=== PATIENT | female | born 1985 | race African-American/Black ===

== ENCOUNTER 2016-11-26 16:36 | Emergency (ER) | payer OTHER ==
[2016-11-26 17:43] LABS: MEAN CORPUSCULAR HEMOGLOBIN 30.9 pg (27.0-33.0); MEAN CORPUSCULAR HGB CONC 34.1 g/dl (32.0-36.5); MEAN CORPUSCULAR VOLUME 90.6 fl (80.0-96.0); RED CELL DISTRIBUTION WIDTH 13.1 % (11.5-14.5); WHITE BLOOD COUNT 7.2 K/mm3 (4.0-10.0)
--- NOTE | 2016-11-26 18:04 | REP ---
Clinical: with vaginal bleeding. Technique: Transabdominal pelvic ultrasound with color Doppler evaluation of the maternal ovaries and fetus. Findings: Anteverted uterus measures 9.3 x 5.4 x 7.2 cm and a single live early intrauterine is identified. Gestational sac with yolk sac and pole noted. CRL of 4 mm corresponds to 6 weeks 1 day gestational age with estimated date of delivery 07/21/2017. heart rate equals 116 beats per minute. A curvilinear subchorionic hemorrhage is identified measuring 16 x 14 mm and 3 cm in length. Impression: 1. Single live early intrauterine at 6 weeks 1 day gestational age. Complete anatomical assessment should be performed at 19-20 weeks. 2. Subchorionic hemorrhage as noted above. Signed by Mando Branch MD 11/26/2016 05:55 P
--- NOTE | 2016-11-26 18:57 | EDDOCDS ---
Physician Documentation [facility] Name: Clarence Oconnell Age: 31 yrs Sex: Female : 1985 Arrival Date: 11/26/2016 Time: 16:36 Bed TR7 Private MD: Other - Complete Info On Cds Disposition: 11/26/16 18:44 Discharged to Home/Self Care. Impression: Abnormal uterine and vaginal bleeding, unspecified - subchorionic hemmorrhage., Other specified related conditions, first trimester. - Condition is Stable. - Discharge Instructions: Threatened Miscarriage, Subchorionic Hematoma. - Medication Reconciliation form. - Follow up: Emergency Department; When: As needed; Reason: Worsening of conditions. Follow up: Your Computer System Validation Specialist; When: Call to arrange an appointment; Reason: Wound/Symptom Recheck, Recheck today's complaints, Worsening of conditions, Continuance of care. - Problem is new. - Symptoms are unchanged. Historical: - Allergies: no known allergies; - Home Meds: 1. estrodol twice a day 2. Oral daily 3. Prednisone Oral every other day 4. progesterone vaginal four times a day - PMHx: PCOS; - PSHx: none; - Social history: No barriers to communication noted, The patient speaks fluent Moldovan, Speaks appropriately for age, Smoking status: Patient states was never smoker of tobacco. - Family history: Not pertinent. - : The pt / caregiver states he / she is not on anticoagulants. Home medication list is obtained from the patient. - Exposure Risk Screening:: None identified. 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 2 in. (157.48 cm) (R); Pain 2/10; 18:48 BP 121 / 77; Pulse 82; Resp 18; Temp 98.3(O); Pulse Ox 100% on R/A; Pain 0/10; ar3 16:38 Body Mass Index 30.18 (74.84 kg, 157.48 cm) gr2 MDM: 17:13 Complete Blood Count Ordered. EDMS 17:13 Hcg, Serum Quantitative Ordered. EDMS 17:13 US 1st trimester Ordered. EDMS 17:13 Rh Only Ordered. EDMS Signatures: Dispatcher [employer] Maggy Echeverria RN RN jc4 Yaneth WhitesideRN RN eaRomel Devi PAKaterineC PA-C cc10 MTDD
--- NOTE | 2016-11-26 18:57 | EDDOCDS ---
Nurse's Notes [facility] Name: Clarence Oconnell Age: 31 yrs Sex: Female : 1985 Arrival Date: 11/26/2016 Time: 16:36 Bed TR7 Private MD: Other - Complete Info On Cds Diagnosis: Abnormal uterine and vaginal bleeding, unspecified-subchorionic hemmorrhage.;Other specified related conditions, first trimester Presentation: 11/26 16:44 Presenting complaint: Patient states: pt reports vaginal bleeding, moderate flow, onset ead 15 minutes prior to arrival. denies cramping. Pt states she is 6 weeks . LMP 10/10/16. Risk factors: The patient reports no loss of conciousness prior to arrival. This patient has not had a hysterectomy. This patient has not begun menopause. Adult Sepsis Screening: The patient does not have new or worsening altered mentation. Patient's respiratory rate is less than 22. Systolic blood pressure is greater than 100. Patient has a qSOFA score of 0- Negative Sepsis Screen. Suicide/Homicide risk assessment- the patient denies having any suicidal and/or homicidal ideations and does not present with any other emotional, behavioral or mental health complaints. Status: The patient is a dependent. Transition of care: patient was not received from another setting of care. 16:44 Acuity: MICHELLE Level 3 ead 16:44 Method Of Arrival: Walkin/Carried/Asstd ead Triage Assessment: 16:47 General: Appears in no apparent distress, comfortable, Behavior is appropriate for age, ead cooperative. Pain: Denies pain. Respiratory: Airway is patent Respiratory effort is even, unlabored. : Reports vaginal bleeding that is moderate flow. Derm: No deficits noted. 16:48 Pt Declines HIV testing. 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 estrodol twice a day 2. Oral daily 3. Prednisone Oral every other day 4. progesterone vaginal four times a day - PMHx: PCOS; - PSHx: none; - Social history: No barriers to communication noted, The patient speaks fluent [place], Speaks appropriately for age, Smoking status: Patient states was never smoker of tobacco. - Family history: Not pertinent. - : The pt / caregiver states he / she is not on anticoagulants. Home medication list is obtained from the patient. - Exposure Risk Screening:: None identified. Screenin:59 Screening information is obtained from the patient. Fall risk: No risks identified. jc4 Assistance ADL's: requires no assistance with activities of daily living. Abuse/DV Screen: The patient / caregiver reports he/she is: not in a situation that causes fear, pain or injury. Nutritional screening: No deficits noted. Advance Directives: Currently, there is no health care proxy. There is no active DNR order. There is no living will. There is no Power of Medical Device Assembler. home support is adequate. Assessment: 18:53 General: Appears in no apparent distress, Behavior is cooperative, pleasant. jc4 Neurological: Level of Consciousness is awake, alert, Oriented to person, place, time. Respiratory: Respiratory effort is even, unlabored. Derm: Skin is pink, warm & dry. Vital Signs: 16:38 BP 134 / 70; Pulse 95; Resp 18 S; Temp 97.7(O); Pulse Ox 100% on R/A; Weight 74.84 kg gr2 (R); Height 5 ft. 2 in. (157.48 cm) (R); Pain 2/10; 18:48 BP 121 / 77; Pulse 82; Resp 18; Temp 98.3(O); Pulse Ox 100% on R/A; Pain 0/10; ar3 16:38 Body Mass Index 30.18 (74.84 kg, 157.48 cm) gr2 Vitals: 16:38 Log In Time: November 26, 2016 at 16:38. gr2 ED Course: 16:37 Patient visited by Mazin Mae. gr2 16:37 Patient moved to Waiting gr2 16:38 Other - Complete Info On Cds is Private Physician. gr2 16:40 Patient visited by Mazin Mae. gr2 16:40 Patient moved to Pre RCE gr2 16:45 Triage Initiated ead 16:58 Patient moved to Triage 1 jc4 16:59 Rom[facility] Sweeney [facility] cc[facility] 16:59 Ger Clifford DO is Attending Physician. cc10 16:59 Patient visited by Romel Sweeney PA-C. cc10 17:00 Patient visited by Romel Sweeney PA-C. cc10 17:28 Patient moved to TR1 rs3 17:29 Patient moved to Ultrasound hgl 17:45 Patient moved to TR1 hgl 18:18 US 1st trimester Returned. EDMS 18:23 Patient moved to PR1 / 25 jc4 18:44 Your Air Crew Supervisor is Referral Physician. cc10 18:48 Patient visited by Gracie Santana PCA. ar3 18:53 The patient / caregiver is instructed regarding the plan of care and ED course. jc4 18:55 Patient moved to TR7 ead 18:55 No IV's were initiated during this patient's visit. No procedures done that require [facility] assistance. Order Results: Lab Order: Complete Blood Count; SPEC'M 11/26/16 17:24 Test: WHITE BLOOD COUNT; Value: 7.2; Range: 4.0-10.0; Units: K/mm3; Status: F Test: RED BLOOD COUNT; Value: 3.95; Range: 4.00-5.40; Abnormal: Below low normal; Units: M/mm3; Status: F Test: HEMOGLOBIN; Value: 12.2; Range: 12.0-16.0; Units: g/dl; Status: F Test: HEMATOCRIT; Value: 35.8; Range: 36.0-47.0; Abnormal: Below low normal; Units: %; Status: F Test: MEAN CORPUSCULAR VOLUME; Value: 90.6; Range: 80.0-96.0; Units: fl; Status: F Test: MEAN CORPUSCULAR HEMOGLOBIN; Value: 30.9; Range: 27.0-33.0; Units: pg; Status: F Test: MEAN CORPUSCULAR HGB CONC; Value: 34.1; Range: 32.0-36.5; Units: g/dl; Status: F Test: RED CELL DISTRIBUTION WIDTH; Value: 13.1; Range: 11.5-14.5; Units: %; Status: F Test: PLATELET COUNT, AUTOMATED; Value: 283; Range: 150-450; Units: k/mm3; Status: F Lab Order: Hcg, Serum Quantitative; SPEC'M 11/26/16 17:24 Test: HCG, SERUM QUANTITATIVE; Value: 38114; Units: MIU/ML; Status: F Test Note: ; GESTATIONAL AGE APPROXIMATE HCG RANGE (MIU/ML) 0.2-1 WEEK 5-50 1-2 WEEKS 50-500 2-3 WEEKS 100-5,000 3-4 WEEKS 500-10,000 4-5 WEEKS 1,000-50,000 5-6 WEEKS 10,000-100,000 6-8 WEEKS 15,000-200,000 2-3 MONTHS 10,000-100,000 NON FEMALES LESS THAN 3.0 Patient samples may contain human heterophilic antibodies that could react with immunoassays to give falsely elevated or depressed results. This assay has been designed to minimize interference from heterophilic antibodies. Elevated hCG levels have also been associated with trophoblastic disease and nontrophoblastic neoplasms. The possibility of having these diseases should be considered before a diagnosis of is made. This test is not intended for use as a surrogate marker for aiding in the diagnosis or monitoring the treatment of cancer patients. Siemens nexTune methodology. Lab Order: Rh Only; SPEC'M 11/26/16 17:24 Test: RH; Value: POSITIVE; Status: F Radiology Order: US 1st trimester Test: US 1st trimester REASON FOR EXAMINATION: Bleeding; Clinical: with vaginal bleeding.; ; Technique: Transabdominal pelvic ultrasound with color Doppler evaluation of the; maternal ovaries and fetus.; ; Findings:; Anteverted uterus measures 9.3 x 5.4 x 7.2 cm and a single live early; intrauterine is identified. Gestational sac with yolk sac and ; pole noted. CRL of 4 mm corresponds to 6 weeks 1 day gestational age with; estimated date of delivery 07/21/2017. heart rate equals 116 beats per; minute. A curvilinear subchorionic hemorrhage is identified measuring 16 x 14 mm; and 3 cm in length.; ; Impression:; 1. Single live early intrauterine at 6 weeks 1 day gestational age.; Complete anatomical assessment should be performed at 19-20 weeks.; 2. Subchorionic hemorrhage as noted above.; ; ; Signed by; Mando Branch MD 11/26/2016 05:55 P; Outcome: 18:44 Discharge ordered by Provider. cc10 18:55 Discharge Assessment: Patient awake, alert and oriented x 3. No cognitive and/or jc4 functional deficits noted. Patient verbalized understanding of disposition instructions. patient administered narcotics - no. The following High Risk Discharge criteria are identified: None. Discharged to home ambulatory, with significant other. Condition: stable. Discharge instructions given to patient, Instructed on discharge instructions, follow up and referral plans. Demonstrated understanding of instructions, Pt was receptive of discharge instructions/ teaching. Ultrasound Study completed. Property :Personal belongings accompany Pt. 18:55 Patient left the ED. jc4 Signatures: Dispatcher MedHost EDMS Renata Dahl,RN RN rs3 Gracie Santana, TRUCK SALES REPRESENTATIVE TRUCK SALES REPRESENTATIVE ar3 Maggy Solitario RN RN jc4 Manuel Hughes Gainslee gr2 Yaneth WhitesideRN RN eaRomel Devi, VICTOR MANUEL PA-Ankit cc10 Corrections: (The following items were deleted from the chart) 16:59 16:47 LMP 10/10/2016 elham jc4 MTDD
--- NOTE | 2016-11-28 19:57 | EDDOCDS ---
Nurse's Notes [facility] Name: Clarence Oconnell Age: 31 yrs Sex: Female : 1985 Arrival Date: 11/26/2016 Time: 16:36 Bed TR7 Private MD: Other - Complete Info On Cds Diagnosis: Abnormal uterine and vaginal bleeding, unspecified-subchorionic hemmorrhage.;Other specified related conditions, first trimester Presentation: 11/26 16:44 Presenting complaint: Patient states: pt reports vaginal bleeding, moderate flow, onset ead 15 minutes prior to arrival. denies cramping. Pt states she is 6 weeks . LMP 10/10/16. Risk factors: The patient reports no loss of conciousness prior to arrival. This patient has not had a hysterectomy. This patient has not begun menopause. Adult Sepsis Screening: The patient does not have new or worsening altered mentation. Patient's respiratory rate is less than 22. Systolic blood pressure is greater than 100. Patient has a qSOFA score of 0- Negative Sepsis Screen. Suicide/Homicide risk assessment- the patient denies having any suicidal and/or homicidal ideations and does not present with any other emotional, behavioral or mental health complaints. Status: The patient is a dependent. Transition of care: patient was not received from another setting of care. 16:44 Acuity: MICHELLE Level 3 ead 16:44 Method Of Arrival: Walkin/Carried/Asstd ead Triage Assessment: 16:47 General: Appears in no apparent distress, comfortable, Behavior is appropriate for age, ead cooperative. Pain: Denies pain. Respiratory: Airway is patent Respiratory effort is even, unlabored. : Reports vaginal bleeding that is moderate flow. Derm: No deficits noted. 16:48 Pt Declines HIV testing. 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 estrodol twice a day 2. Oral daily 3. Prednisone Oral every other day 4. progesterone vaginal four times a day - PMHx: PCOS; - PSHx: none; - Social history: No barriers to communication noted, The patient speaks fluent Cymraes, Speaks appropriately for age, Smoking status: Patient states was never smoker of tobacco. - Family history: Not pertinent. - : The pt / caregiver states he / she is not on anticoagulants. Home medication list is obtained from the patient. - Exposure Risk Screening:: None identified. Screenin:59 Screening information is obtained from the patient. Fall risk: No risks identified. jc4 Assistance ADL's: requires no assistance with activities of daily living. Abuse/DV Screen: The patient / caregiver reports he/she is: not in a situation that causes fear, pain or injury. Nutritional screening: No deficits noted. Advance Directives: Currently, there is no health care proxy. There is no active DNR order. There is no living will. There is no Power of Aerial Hurricane Hunter. home support is adequate. Assessment: 18:53 General: Appears in no apparent distress, Behavior is cooperative, pleasant. jc4 Neurological: Level of Consciousness is awake, alert, Oriented to person, place, time. Respiratory: Respiratory effort is even, unlabored. Derm: Skin is pink, warm & dry. Vital Signs: 16:38 BP 134 / 70; Pulse 95; Resp 18 S; Temp 97.7(O); Pulse Ox 100% on R/A; Weight 74.84 kg gr2 (R); Height 5 ft. 2 in. (157.48 cm) (R); Pain 2/10; 18:48 BP 121 / 77; Pulse 82; Resp 18; Temp 98.3(O); Pulse Ox 100% on R/A; Pain 0/10; ar3 16:38 Body Mass Index 30.18 (74.84 kg, 157.48 cm) gr2 Vitals: 16:38 Log In Time: November 26, 2016 at 16:38. gr2 ED Course: 16:37 Patient visited by Mazin Mae. gr2 16:37 Patient moved to Waiting gr2 16:38 Other - Complete Info On Cds is Private Physician. gr2 16:40 Patient visited by Mazin Mae. gr2 16:40 Patient moved to Pre RCE gr2 16:45 Triage Initiated ead 16:58 Patient moved to Triage 1 jc4 16:59 Romel Sweeney PA-C [facility] cc10 16:59 Ger Clifford DO is Attending Physician. cc10 16:59 Patient visited by Romel Sweeney PA-C. cc10 17:00 Patient visited by Romel Sweeney PA-C. cc10 17:28 Patient moved to TR1 rs3 17:29 Patient moved to Ultrasound hgl 17:45 Patient moved to TR1 hgl 18:18 US 1st trimester Returned. EDMS 18:23 Patient moved to PR1 / 25 jc4 18:44 Your Cloth Hand is Referral Physician. cc10 18:48 Patient visited by Gracie Santana PCA. ar3 18:53 The patient / caregiver is instructed regarding the plan of care and ED course. jc4 18:55 Patient moved to TR7 ead 18:55 No IV's were initiated during this patient's visit. No procedures done that require [facility] assistance. 11/27 01:39 T-Sheet-- Draft Copy was scanned into [employer] and attached to record. hs2 Order Results: Lab Order: Complete Blood Count; SPEC'M 11/26/16 17:24 Test: WHITE BLOOD COUNT; Value: 7.2; Range: 4.0-10.0; Units: K/mm3; Status: F Test: RED BLOOD COUNT; Value: 3.95; Range: 4.00-5.40; Abnormal: Below low normal; Units: M/mm3; Status: F Test: HEMOGLOBIN; Value: 12.2; Range: 12.0-16.0; Units: g/dl; Status: F Test: HEMATOCRIT; Value: 35.8; Range: 36.0-47.0; Abnormal: Below low normal; Units: %; Status: F Test: MEAN CORPUSCULAR VOLUME; Value: 90.6; Range: 80.0-96.0; Units: fl; Status: F Test: MEAN CORPUSCULAR HEMOGLOBIN; Value: 30.9; Range: 27.0-33.0; Units: pg; Status: F Test: MEAN CORPUSCULAR HGB CONC; Value: 34.1; Range: 32.0-36.5; Units: g/dl; Status: F Test: RED CELL DISTRIBUTION WIDTH; Value: 13.1; Range: 11.5-14.5; Units: %; Status: F Test: PLATELET COUNT, AUTOMATED; Value: 283; Range: 150-450; Units: k/mm3; Status: F Lab Order: Hcg, Serum Quantitative; SPEC'M 11/26/16 17:24 Test: HCG, SERUM QUANTITATIVE; Value: [id number]; Units: MIU/ML; Status: F Test Note: ; GESTATIONAL AGE APPROXIMATE HCG RANGE (MIU/ML) 0.2-1 WEEK 5-50 1-2 WEEKS 50-500 2-3 WEEKS 100-5,000 3-4 WEEKS 500-10,000 4-5 WEEKS 1,000-50,000 5-6 WEEKS 10,000-100,000 6-8 WEEKS 15,000-200,000 2-3 MONTHS 10,000-100,000 NON FEMALES LESS THAN 3.0 Patient samples may contain human heterophilic antibodies that could react with immunoassays to give falsely elevated or depressed results. This assay has been designed to minimize interference from heterophilic antibodies. Elevated hCG levels have also been associated with trophoblastic disease and nontrophoblastic neoplasms. The possibility of having these diseases should be considered before a diagnosis of is made. This test is not intended for use as a surrogate marker for aiding in the diagnosis or monitoring the treatment of cancer patients. Siemens CS Disco methodology. Lab Order: Rh Only; SPEC'M 11/26/16 17:24 Test: RH; Value: POSITIVE; Status: F Radiology Order: US 1st trimester Test: US 1st trimester REASON FOR EXAMINATION: Bleeding; Clinical: with vaginal bleeding.; ; Technique: Transabdominal pelvic ultrasound with color Doppler evaluation of the; maternal ovaries and fetus.; ; Findings:; Anteverted uterus measures 9.3 x 5.4 x 7.2 cm and a single live early; intrauterine is identified. Gestational sac with yolk sac and ; pole noted. CRL of 4 mm corresponds to 6 weeks 1 day gestational age with; estimated date of delivery 07/21/2017. heart rate equals 116 beats per; minute. A curvilinear subchorionic hemorrhage is identified measuring 16 x 14 mm; and 3 cm in length.; ; Impression:; 1. Single live early intrauterine at 6 weeks 1 day gestational age.; Complete anatomical assessment should be performed at 19-20 weeks.; 2. Subchorionic hemorrhage as noted above.; ; ; Signed by; Mando Branch MD 11/26/2016 05:55 P; Outcome: 11/26 18:44 Discharge ordered by Provider. cc10 18:55 Discharge Assessment: Patient awake, alert and oriented x 3. No cognitive and/or jc4 functional deficits noted. Patient verbalized understanding of disposition instructions. patient administered narcotics - no. The following High Risk Discharge criteria are identified: None. Discharged to home ambulatory, with significant other. Condition: stable. Discharge instructions given to patient, Instructed on discharge instructions, follow up and referral plans. Demonstrated understanding of instructions, Pt was receptive of discharge instructions/ teaching. Ultrasound Study completed. Property :Personal belongings accompany Pt. 18:55 Patient left the ED. jc4 Signatures: Dispatcher MedHost EDMS Renata Dahl,RN RN rs3 Gracie Santana, INFRASTRUCTURE DIRECTOR INFRASTRUCTURE DIRECTOR ar3 Maggy Solitario RN RN jc4 Manuel Hughes Gainslee gr2 Yaneth WhitesideRN RN ead Romel Sweeney, PA-C PA-C cc10 Penelope Terrazas, Reg Reg hs2 Corrections: (The following items were deleted from the chart) 16:59 16:47 LMP 10/10/2016 elham jc4 Chart Complete MTDD
--- NOTE | 2016-11-28 19:57 | EDDOCDS ---
Physician Documentation [facility] Name: Clarence Oconnell Age: 31 yrs Sex: Female : 1985 Arrival Date: 11/26/2016 Time: 16:36 Bed TR7 Private MD: Other - Complete Info On Cds Disposition: 11/26/16 18:44 Discharged to Home/Self Care. Impression: Abnormal uterine and vaginal bleeding, unspecified - subchorionic hemmorrhage., Other specified related conditions, first trimester. - Condition is Stable. - Discharge Instructions: Threatened Miscarriage, Subchorionic Hematoma. - Medication Reconciliation form. - Follow up: Emergency Department; When: As needed; Reason: Worsening of conditions. 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 - Problem is new. - Symptoms are unchanged. Historical: - Allergies: no known allergies; - Home Meds: 1. estrodol twice a day 2. Oral daily 3. Prednisone Oral every other day 4. progesterone vaginal four times a day - PMHx: PCOS; - PSHx: none; - Social history: No barriers to communication noted, The patient speaks fluent Panamanian, Speaks appropriately for age, Smoking status: Patient states was never smoker of tobacco. - Family history: Not pertinent. - : The pt / caregiver states he / she is not on anticoagulants. Home medication list is obtained from the patient. - Exposure Risk Screening:: None identified. 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 2 in. (157.48 cm) (R); Pain 2/10; 18:48 BP 121 / 77; Pulse 82; Resp 18; Temp 98.3(O); Pulse Ox 100% on R/A; Pain 0/10; ar3 16:38 Body Mass Index 30.18 (74.84 kg, 157.48 cm) gr2 MDM: 17:13 Complete Blood Count Ordered. EDMS 17:13 Hcg, Serum Quantitative Ordered. EDMS 17:13 US 1st trimester Ordered. EDMS 17:13 Rh Only Ordered. EDMS 19:23 Financial registration complete. larissa 11/27 01:39 T-Sheet-- Draft Copy was scanned into [employer] and attached to record. hs2 Signatures: Dispatcher [employer] EDNikky Robertson Jennifer RN RN jc4 Yaneth WhitesideRN RN ead Romel Sweeney, PA-C PA-C cc10 Penelope Terrazas, Reg Reg hs2 The chart was reviewed and I authenticate all verbal orders and agree with the evaluation and treatment provided.Attachments: 01:39 T-Sheet-- Draft Copy hs2 Chart Complete MTDD
--- NOTE | 2016-11-28 19:57 | EDDOCDS ---
Physician Documentation [facility] Name: Clarence Oconnell Age: 31 yrs Sex: Female : 1985 Arrival Date: 11/26/2016 Time: 16:36 Bed TR7 Private MD: Other - Complete Info On Cds Disposition: 11/26/16 18:44 Discharged to Home/Self Care. Impression: Abnormal uterine and vaginal bleeding, unspecified - subchorionic hemmorrhage., Other specified related conditions, first trimester. - Condition is Stable. - Discharge Instructions: Threatened Miscarriage, Subchorionic Hematoma. - Medication Reconciliation form. - Follow up: Emergency Department; When: As needed; Reason: Worsening of conditions. Follow up: Your Fish Bait Processing Supervisor; When: Call to arrange an appointment; Reason: Wound/Symptom Recheck, Recheck today's complaints, Worsening of conditions, Continuance of care. - Problem is new. - Symptoms are unchanged. Historical: - Allergies: no known allergies; - Home Meds: 1. estrodol twice a day 2. Oral daily 3. Prednisone Oral every other day 4. progesterone vaginal four times a day - PMHx: PCOS; - PSHx: none; - Social history: No barriers to communication noted, The patient speaks fluent Iraqi, Speaks appropriately for age, Smoking status: Patient states was never smoker of tobacco. - Family history: Not pertinent. - : The pt / caregiver states he / she is not on anticoagulants. Home medication list is obtained from the patient. - Exposure Risk Screening:: None identified. SALES PROMOTION MANAGER: 11/26 16:47 1, LMP 10/10/2016, Verified, EDC 07/17/2017, Gestational age from LMP: jc4 6 weeks 5 days Vital Signs: 16:38 BP 134 / 70; Pulse 95; Resp 18 S; Temp 97.7(O); Pulse Ox 100% on R/A; Weight 74.84 kg / gr2 164.99 lbs (R); Height 5 ft. 2 in. (157.48 cm) (R); Pain 2/10; 18:48 BP 121 / 77; Pulse 82; Resp 18; Temp 98.3(O); Pulse Ox 100% on R/A; Pain 0/10; ar3 16:38 Body Mass Index 30.18 (74.84 kg, 157.48 cm) gr2 MDM: 17:13 Complete Blood Count Ordered. EDMS 17:13 Hcg, Serum Quantitative Ordered. EDMS 17:13 US 1st trimester Ordered. EDMS 17:13 Rh Only Ordered. EDMS 19:23 Financial registration complete. larissa 11/27 01:39 T-Sheet-- Draft Copy was scanned into [employer] and attached to record. hs2 Signatures: Dispatcher [employer] EDNikky Robertson Jennifer RN RN [id number] Yaneth WhitesideRN RN ead Romel Sweeney, PA-C PA-C cc10 Penelope Terrazas, Reg Reg hs2 The chart was reviewed and I authenticate all verbal orders and agree with the evaluation and treatment provided.Attachments: 01:39 T-Sheet-- Draft Copy hs2 Chart Complete MTDD
== END 2016-11-26 18:55 | disposition home or self-care (01) ==
LOC: M ED 16:36
DX: O20.0 Threatened abortion (principal); O36.8910 Maternal care for other specified fetal problems, first trimester, not applicable or unspecified; O99.281 Endocrine, nutritional and metabolic diseases complicating pregnancy, first trimester; E28.2 Polycystic ovarian syndrome; Z79.899 Other long term (current) drug therapy; Z3A.01 Less than 8 weeks gestation of pregnancy

== ENCOUNTER 2016-12-19 20:21 | Emergency (ER) | payer OTHER ==
--- NOTE | 2016-12-19 22:50 | REPUSA ---
CLINICAL HISTORY: Assess . TECHNIQUE: Transabdominal and endovaginal ultrasound of the pelvis was performed with transabdominal technique using grayscale and color spectral Doppler. FINDINGS: Single intrauterine gestation identified correlating 10 weeks, 3 days based on CRL measurement of 3.5 mm, and expected date of delivery 07/14/2017. heart rate detected at 171 BPM. Small subchorioni c hemorrhage located in the lateral portion of the uterus. No gross abnormality is identified although complete anatomical survey is not possible due to g estational age. Maternal adnexal and cul-de-sac regions demonstrate no significant abnormalities Both ovaries are identified without adnexal mass or pelvic fluid collection. IMPRESSION: Single intrauterine gestation identified correlating 10 weeks, 3 days based on CRL measurement of 3.5 mm, and expected date of delivery 07/14/2017. Small subchorionic hemorrhage located in the lateral po rtion of the uterus noted and close clinical follow-up with pelvic ultrasound is recommended to ensur e resolution or stability.
--- NOTE | 2016-12-19 23:35 | EDDOCDS ---
Nurse's Notes [facility] Name: Clarence Oconnell Age: 31 yrs Sex: Female : 1985 Arrival Date: 12/19/2016 Time: 20:21 Bed 30 Private MD: Other - Complete Info On Cds Diagnosis: Threatened -single intrauterine with small stable subchorionic hematoma Presentation: 12/19 20:29 Presenting complaint: Patient states: Diagnosed with subchorionic hematoma 4 weeks ago. jo3 started bleeding again tonight and Ft drum triage nurse advised for pt to come to ED. Risk factors: The patient reports no loss of conciousness prior to arrival. This patient has not had a hysterectomy. This patient has not begun menopause. Adult Sepsis Screening: The patient does not have new or worsening altered mentation. Patient's respiratory rate is less than 22. Systolic blood pressure is greater than 100. Patient has a qSOFA score of 0- Negative Sepsis Screen. Suicide/Homicide risk assessment- the patient denies having any suicidal and/or homicidal ideations and does not present with any other emotional, behavioral or mental health complaints. Status: The patient is a dependent. Transition of care: patient was not received from another setting of care. 20:29 Acuity: MICHELLE Level 3 jo3 20:29 Method Of Arrival: Walkin/Carried/Asstd jo3 Triage Assessment: 20:32 General: Appears in no apparent distress, comfortable, Behavior is appropriate for age, jo3 cooperative. Pain: Denies pain. HIV screening NA for this visit Offered previously. Neurological: Level of Consciousness is awake, alert, Oriented to person, place, time. Respiratory: Airway is patent Respiratory effort is even, unlabored. : Reports vaginal bleeding that is bright red with clots. 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 Oral daily 2. progesterone vaginal four times a day 3. Vitamin B-6 Unknown oral as needed for nausea - PMHx: PCOS; - PSHx: none; - Social history: Smoking status: Patient states was never smoker of tobacco. No barriers to communication noted, The patient speaks fluent Panamanian, Speaks appropriately for age. - Family history: Not pertinent. - : The pt / caregiver states he / she is not on anticoagulants. Home medication list is obtained from the patient. - Exposure Risk Screening:: None identified. Screenin:11 Screening information is obtained from the patient. Fall risk: No risks identified. jo3 Assistance ADL's: requires no assistance with activities of daily living. Abuse/DV Screen: The patient / caregiver reports he/she is: not in a situation that causes fear, pain or injury. Nutritional screening: No deficits noted. Advance Directives: There is no active DNR order. home support is adequate. Assessment: 22:00 General: Appears in no apparent distress, comfortable, Behavior is appropriate for age, jo3 cooperative, pleasant. Neurological: Level of Consciousness is awake, alert, Oriented to person, place, time. Respiratory: Airway is patent Respiratory effort is even, unlabored. Derm: No deficits noted. Skin is intact, Skin is dry, Skin is normal, Skin temperature is warm. 23:32 General: Appears in no apparent distress, comfortable, Behavior is appropriate for age, jo3 cooperative, pleasant. Neurological: No deficits noted. Respiratory: Airway is patent Respiratory effort is even, unlabored. Derm: Skin is pink, warm & dry. Vital Signs: 20:23 BP 131 / 77; Pulse 94; Resp 18 S; Temp 98.6(O); Pulse Ox 100% on R/A; Weight 74.39 kg gr2 (R); Height 5 ft. 2 in. (157.48 cm) (R); Pain 2/10; 23:32 BP 123 / 77; Pulse 84; Resp 16; Temp 98.2(O); Pulse Ox 99% on R/A; jo3 20:23 Body Mass Index 30.00 (74.39 kg, 157.48 cm) gr2 Vitals: 20:23 Log In Time: December 19, 2016 at 20:23. gr2 ED Course: 20:22 Patient visited by Mazin Mae. gr2 20:22 Other - Complete Info On Cds is Private Physician. gr2 20:22 Patient moved to Waiting gr2 20:24 Patient visited by Mazin Mae. gr2 20:24 Patient moved to Pre RCE gr2 20:31 Triage Initiated jo3 20:32 Patient visited by Maggy Trujillo RN. jo3 21:37 Patient moved to Triage 1 jo3 22:06 Alberto S[facility]-C is [facility]. ar2 22:06 Lam Zhao DO is Attending Physician. ar2 22:08 Patient visited by Alberto Sánchez PA-C. ar2 22:16 Patient moved to 30 lf1 23:12 Patient visited by Maggy Trujillo RN. jo3 23:15 Kimmy Mcgregor OB is Referral Physician. ar2 23:32 The patient / caregiver is instructed regarding the plan of care and ED course. jo3 23:32 No IV's were initiated during this patient's visit. No procedures done that require jo3 assistance. Order Results: There are currently no results for this order. Outcome: 23:16 Discharge ordered by Provider. ar2 23:32 Discharge Assessment: Patient awake, alert and oriented x 3. No cognitive and/or jo3 functional deficits noted. Patient verbalized understanding of disposition instructions. patient administered narcotics - no. The following High Risk Discharge criteria are identified: None. Discharged to home ambulatory. Condition: stable Condition: improved. Discharge instructions given to patient, Instructed on discharge instructions, follow up and referral plans. Demonstrated understanding of instructions, Pt was receptive of discharge instructions/ teaching. Ultrasound Study completed. Property sent home with patient. 23:34 Patient left the ED. jo3 Signatures: Maggy Trujillo,RN RN oralia3 Claudia Blake RN RN 1 Alberto Sánchez PA-C PA-C ar2 Mazin Mae gr2 SEPIDEH
--- NOTE | 2016-12-19 23:35 | EDDOCDS ---
Physician Documentation [facility] Name: Clarence Oconnell Age: 31 yrs Sex: Female : 1985 Arrival Date: 12/19/2016 Time: 20:21 Bed 30 Private MD: Other - Complete Info On Cds Disposition: 12/19/16 23:16 Discharged to Home/Self Care. Impression: Threatened - single intrauterine with small stable subchorionic hematoma. - Condition is Stable. - Discharge Instructions: First Trimester of , Subchorionic Hematoma, Pelvic Rest, Second Trimester of , [id number]. - Medication Reconciliation, Local Pharmacy Hours form. - Follow up: Kimmy Mcgregor, OB; When: As previously arranged; Reason: Recheck today's complaints, Continuance of care. Follow up: Emergency Department; When: As needed; Reason: Worsening of conditions, severe pain, severe bleeding. - Problem is new. - Symptoms are unchanged. - Notes: call your mechanical sound technician office tomorrow to give them update of recent bleeding and today's visit. follow their instructions. Historical: - Allergies: No known drug Allergies; - Home Meds: 1. Oral daily 2. progesterone vaginal four times a day 3. Vitamin B-6 Unknown oral as needed for nausea - PMHx: PCOS; - PSHx: none; - Social history: Smoking status: Patient states was never smoker of tobacco. No barriers to communication noted, The patient speaks fluent Liberian, Speaks appropriately for age. - Family history: Not pertinent. - : The pt / caregiver states he / she is not on anticoagulants. Home medication list is obtained from the patient. - Exposure Risk Screening:: None identified. SPECIALTY COOK: 12/19 20:32 LMP 10/10/2016 jo3 Vital Signs: 20:23 BP 131 / 77; Pulse 94; Resp 18 S; Temp 98.6(O); Pulse Ox 100% on R/A; Weight 74.39 kg / gr2 164 lbs (R); Height 5 ft. 2 in. (157.48 cm) (R); Pain 2/10; 23:32 BP 123 / 77; Pulse 84; Resp 16; Temp 98.2(O); Pulse Ox 99% on R/A; jo3 20:23 Body Mass Index 30.00 (74.39 kg, 157.48 cm) gr2 MDM: 22:16 Undress patient appropriately for examination ordered. ar2 22:18 US 1st trimester Ordered. EDMS 22:40 DUPLEX SCAN LIMITED (DOPPLER) Ordered. EDMS 23:33 Financial registration complete. zo Signatures: Dispatcher [employer] EDMS Maggy Trujillo RN RN jo3 Nikky Torres Aaron, PA-C PA-C ar2 MTDD
--- NOTE | 2016-12-22 00:35 | EDDOCDS ---
Physician Documentation [facility] Name: Clarence Oconnell Age: 31 yrs Sex: Female : 1985 Arrival Date: 12/19/2016 Time: 20:21 Bed 30 Private MD: Other - Complete Info On Cds Disposition: 12/19/16 23:16 Discharged to Home/Self Care. Impression: Threatened - single intrauterine with small stable subchorionic hematoma. - Condition is Stable. - Discharge Instructions: First Trimester of , Subchorionic Hematoma, Pelvic Rest, Second Trimester of , [id number]. - Medication Reconciliation, Local Pharmacy Hours form. - Follow up: Kimmy Mcgregor, OB; When: As previously arranged; Reason: Recheck today's complaints, Continuance of care. Follow up: Emergency Department; When: As needed; Reason: Worsening of conditions, severe pain, severe bleeding. - Problem is new. - Symptoms are unchanged. - Notes: call your senior network security architect office tomorrow to give them update of recent bleeding and today's visit. follow their instructions. Historical: - Allergies: No known drug Allergies; - Home Meds: 1. Oral daily 2. progesterone vaginal four times a day 3. Vitamin B-6 Unknown oral as needed for nausea - PMHx: PCOS; - PSHx: none; - Social history: Smoking status: Patient states was never smoker of tobacco. No barriers to communication noted, The patient speaks fluent Slovenian, Speaks appropriately for age. - Family history: Not pertinent. - : The pt / caregiver states he / she is not on anticoagulants. Home medication list is obtained from the patient. - Exposure Risk Screening:: None identified. 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 2 in. (157.48 cm) (R); Pain 2/10; 23:32 BP 123 / 77; Pulse 84; Resp 16; Temp 98.2(O); Pulse Ox 99% on R/A; jo3 20:23 Body Mass Index 30.00 (74.39 kg, 157.48 cm) gr2 MDM: 22:16 Undress patient appropriately for examination ordered. ar2 22:18 US 1st trimester Ordered. EDMS 22:40 DUPLEX SCAN LIMITED (DOPPLER) Ordered. EDMS 23:33 Financial registration complete. zo :49 [facility] Payment Agreement was scanned into [employer] and attached to record. zo 12/20 12:45 T-Sheet-- Draft Copy was scanned into [employer] and attached to record. gb 12:45 Radiology Report was scanned into [employer] and attached to record. gb Signatures: Dispatcher [employer] EDMS Caro Shaw, Reg Reg gb Maggy Trujillo,RN RN jo3 Nikky Torres Aaron, PA-C PANeal ar2 The chart was reviewed and I authenticate all verbal orders and agree with the evaluation and treatment provided.Attachments: 12/19 23:49 [facility] Payment Agreement zo 12/20 12:45 T-Sheet-- Draft Copy gb Chart Complete MTDD
--- NOTE | 2016-12-22 00:35 | EDDOCDS ---
Physician Documentation [facility] Name: Clarence Oconnell Age: 31 yrs Sex: Female : 1985 Arrival Date: 12/19/2016 Time: 20:21 Bed 30 Private MD: Other - Complete Info On Cds Disposition: 12/19/16 23:16 Discharged to Home/Self Care. Impression: Threatened - single intrauterine with small stable subchorionic hematoma. - Condition is Stable. - Discharge Instructions: First Trimester of , Subchorionic Hematoma, Pelvic Rest, Second Trimester of , [id number]. - Medication Reconciliation, Local Pharmacy Hours form. - Follow up: Kimmy Mcgregor, OB; When: As previously arranged; Reason: Recheck today's complaints, Continuance of care. Follow up: Emergency Department; When: As needed; Reason: Worsening of conditions, severe pain, severe bleeding. - Problem is new. - Symptoms are unchanged. - Notes: call your timber sprinkler office tomorrow to give them update of recent bleeding and today's visit. follow their instructions. Historical: - Allergies: No known drug Allergies; - Home Meds: 1. Oral daily 2. progesterone vaginal four times a day 3. Vitamin B-6 Unknown oral as needed for nausea - PMHx: PCOS; - PSHx: none; - Social history: Smoking status: Patient states was never smoker of tobacco. No barriers to communication noted, The patient speaks fluent Bahamian, Speaks appropriately for age. - Family history: Not pertinent. - : The pt / caregiver states he / she is not on anticoagulants. Home medication list is obtained from the patient. - Exposure Risk Screening:: None identified. MANAGER PRACTICE: 12/19 20:32 LMP 10/10/2016 jo3 Vital Signs: 20:23 BP 131 / 77; Pulse 94; Resp 18 S; Temp 98.6(O); Pulse Ox 100% on R/A; Weight 74.39 kg / gr2 164 lbs (R); Height 5 ft. 2 in. (157.48 cm) (R); Pain 2/10; 23:32 BP 123 / 77; Pulse 84; Resp 16; Temp 98.2(O); Pulse Ox 99% on R/A; jo3 20:23 Body Mass Index 30.00 (74.39 kg, 157.48 cm) gr2 MDM: 22:16 Undress patient appropriately for examination ordered. ar2 22:18 US 1st trimester Ordered. EDMS 22:40 DUPLEX SCAN LIMITED (DOPPLER) Ordered. EDMS 23:33 Financial registration complete. zo :49 [facility] Payment Agreement was scanned into [employer] and attached to record. zo 12/20 12:45 T-Sheet-- Draft Copy was scanned into [employer] and attached to record. gb 12:45 Radiology Report was scanned into [employer] and attached to record. gb Signatures: Dispatcher [employer] EDMS Caro Shaw, Reg Reg gb Maggy Trujillo,RN RN jo3 Nikky Torres Aaron, PA-C PANeal ar2 The chart was reviewed and I authenticate all verbal orders and agree with the evaluation and treatment provided.Attachments: 12/19 23:49 [facility] Payment Agreement zo 12/20 12:45 T-Sheet-- Draft Copy gb Chart Complete MTDD
--- NOTE | 2016-12-22 00:35 | EDDOCDS ---
Nurse's Notes [facility] Name: Clarence Oconnell Age: 31 yrs Sex: Female : 1985 Arrival Date: 12/19/2016 Time: 20:21 Bed 30 Private MD: Other - Complete Info On Cds Diagnosis: Threatened -single intrauterine with small stable subchorionic hematoma Presentation: 12/19 20:29 Presenting complaint: Patient states: Diagnosed with subchorionic hematoma 4 weeks ago. jo3 started bleeding again tonight and Ft drum triage nurse advised for pt to come to ED. Risk factors: The patient reports no loss of conciousness prior to arrival. This patient has not had a hysterectomy. This patient has not begun menopause. Adult Sepsis Screening: The patient does not have new or worsening altered mentation. Patient's respiratory rate is less than 22. Systolic blood pressure is greater than 100. Patient has a qSOFA score of 0- Negative Sepsis Screen. Suicide/Homicide risk assessment- the patient denies having any suicidal and/or homicidal ideations and does not present with any other emotional, behavioral or mental health complaints. Status: The patient is a dependent. Transition of care: patient was not received from another setting of care. 20:29 Acuity: MICHELLE Level 3 jo3 20:29 Method Of Arrival: Walkin/Carried/Asstd jo3 Triage Assessment: 20:32 General: Appears in no apparent distress, comfortable, Behavior is appropriate for age, jo3 cooperative. Pain: Denies pain. HIV screening NA for this visit Offered previously. Neurological: Level of Consciousness is awake, alert, Oriented to person, place, time. Respiratory: Airway is patent Respiratory effort is even, unlabored. : Reports vaginal bleeding that is bright red with clots. 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 Oral daily 2. progesterone vaginal four times a day 3. Vitamin B-6 Unknown oral as needed for nausea - PMHx: PCOS; - PSHx: none; - Social history: Smoking status: Patient states was never smoker of tobacco. No barriers to communication noted, The patient speaks fluent [place] Citizen, Speaks appropriately for age. - Family history: Not pertinent. - : The pt / caregiver states he / she is not on anticoagulants. Home medication list is obtained from the patient. - Exposure Risk Screening:: None identified. Screenin:11 Screening information is obtained from the patient. Fall risk: No risks identified. jo3 Assistance ADL's: requires no assistance with activities of daily living. Abuse/DV Screen: The patient / caregiver reports he/she is: not in a situation that causes fear, pain or injury. Nutritional screening: No deficits noted. Advance Directives: There is no active DNR order. home support is adequate. Assessment: 22:00 General: Appears in no apparent distress, comfortable, Behavior is appropriate for age, jo3 cooperative, pleasant. Neurological: Level of Consciousness is awake, alert, Oriented to person, place, time. Respiratory: Airway is patent Respiratory effort is even, unlabored. Derm: No deficits noted. Skin is intact, Skin is dry, Skin is normal, Skin temperature is warm. 23:32 General: Appears in no apparent distress, comfortable, Behavior is appropriate for age, jo3 cooperative, pleasant. Neurological: No deficits noted. Respiratory: Airway is patent Respiratory effort is even, unlabored. Derm: Skin is pink, warm & dry. Vital Signs: 20:23 BP 131 / 77; Pulse 94; Resp 18 S; Temp 98.6(O); Pulse Ox 100% on R/A; Weight 74.39 kg gr2 (R); Height 5 ft. 2 in. (157.48 cm) (R); Pain 2/10; 23:32 BP 123 / 77; Pulse 84; Resp 16; Temp 98.2(O); Pulse Ox 99% on R/A; jo3 20:23 Body Mass Index 30.00 (74.39 kg, 157.48 cm) gr2 Vitals: 20:23 Log In Time: December 19, 2016 at 20:23. gr2 ED Course: 20:22 Patient visited by Mazin Mae. gr2 20:22 Other - Complete Info On Cds is Private Physician. gr2 20:22 Patient moved to Waiting gr2 20:24 Patient visited by Mazin Mae. gr2 20:24 Patient moved to Pre RCE gr2 20:31 Triage Initiated jo3 20:32 Patient visited by Maggy Trujillo RN. jo3 21:37 Patient moved to Triage 1 jo3 22:06 Alberto [facility]. ar2 22:06 Lam Zhao DO is Attending Physician. ar2 22:08 Patient visited by Alberto Sánchez PA-C. ar2 22:16 Patient moved to 30 lf1 23:12 Patient visited by Maggy Trujillo RN. jo3 23:15 [place], OB is Referral Physician. ar2 23:32 The patient / caregiver is instructed regarding the plan of care and ED course. jo3 23:32 No IV's were initiated during this patient's visit. No procedures done that require jo3 assistance. 23:47 US 1st trimester Returned. EDMS 23:49 [facility] Payment Agreement was scanned into [employer] and attached to record. zo 12/20 12:45 T-Sheet-- Draft Copy was scanned into [employer] and attached to record. gb 12:45 Radiology Report was scanned into [employer] and attached to record. gb Order Results: Radiology Order: US 1st trimester Test: US 1st trimester REASON FOR EXAMINATION: LMP 10/10/16;Vaginal Bleeding - ; ; CLINICAL HISTORY: Assess .; TECHNIQUE: Transabdominal and endovaginal ultrasound of the pelvis was performed with transabdominal; technique using grayscale and color spectral Doppler.; FINDINGS:; Single intrauterine gestation identified correlating 10 weeks, 3 days based on CRL measurement of 3.5; mm, and expected date of delivery 07/14/2017. heart rate detected at 171 BPM. Small subchorioni; c hemorrhage located in the lateral portion of the uterus.; No gross abnormality is identified although complete anatomical survey is not possible due to g; estational age.; Maternal adnexal and cul-de-sac regions demonstrate no significant abnormalities; Both ovaries are identified without adnexal mass or pelvic fluid collection.; IMPRESSION:; Single intrauterine gestation identified correlating 10 weeks, 3 days based on CRL measurement of 3.5; mm, and expected date of delivery 07/14/2017. Small subchorionic hemorrhage located in the lateral po; rtion of the uterus noted and close clinical follow-up with pelvic ultrasound is recommended to ensur; e resolution or stability.; ; Outcome: 12/19 23:16 Discharge ordered by Provider. ar2 23:32 Discharge Assessment: Patient awake, alert and oriented x 3. No cognitive and/or jo3 functional deficits noted. Patient verbalized understanding of disposition instructions. patient administered narcotics - no. The following High Risk Discharge criteria are identified: None. Discharged to home ambulatory. Condition: stable Condition: improved. Discharge instructions given to patient, Instructed on discharge instructions, follow up and referral plans. Demonstrated understanding of instructions, Pt was receptive of discharge instructions/ teaching. Ultrasound Study completed. Property sent home with patient. 23:34 Patient left the ED. jo3 Signatures: Dispatcher [employer] EDMS Caro Shaw, Reg Reg Maggy DoddRN RN jo3 Nikky Torres LisaRN RN lf1 Alberto Sánchez PA-C PA-C ar2 Mazin Mae gr2 Chart Complete MTDValentin
== END 2016-12-19 23:34 | disposition home or self-care (01) ==
LOC: M ED 20:21
DX: O20.8 Other hemorrhage in early pregnancy (principal); Z3A.10 10 weeks gestation of pregnancy; E28.2 Polycystic ovarian syndrome; Z79.899 Other long term (current) drug therapy

== ENCOUNTER 2016-12-24 19:59 | Emergency (ER) | payer OTHER ==
[2016-12-24] MEDS ORDERED: METOCLOPRAMIDE 10 MG TAB As Ordered ONE (20:33)
[2016-12-24 23:04] LABS: BASO % 0.3 % (0.0-1.0); EOS # 0.1 K/mm3 (0.0-0.50); EOS % 1.2 % (0.0-3.0); LARGE UNSTAINED CELL # 0.1 K/mm3 (0.0-0.4); LARGE UNSTAINED CELL % 1.6 % (0.0-4.0); LYMPH # 1.8 K/mm3 (1.5-6.5); MEAN CORPUSCULAR HEMOGLOBIN 30.4 pg (27.0-33.0); MEAN CORPUSCULAR HGB CONC 33.6 g/dl (32.0-36.5); MEAN CORPUSCULAR VOLUME 90.2 fl (80.0-96.0); MONO # 0.3 K/mm3 (0.0-0.8); MONO % 3.7 % (0.0-5.0); NEUTROPHILS # 4.7 K/mm3 (1.8-7.7); NEUTROPHILS % 67.1 % (36.0-66.0); PLATELET COUNT, AUTOMATED 295 k/mm3 (150-450); RED CELL DISTRIBUTION WIDTH 12.2 % (11.5-14.5)
[2016-12-24 23:24] LABS: ANION GAP 12 MEQ/L (8-16); BLOOD UREA NITROGEN 11 MG/DL (7-18); CALCIUM LEVEL 9.3 MG/DL (8.5-10.1); CARBON DIOXIDE LEVEL 25 MEQ/L (21-32); CHLORIDE LEVEL 101 MEQ/L (98-107); CREATININE FOR GFR 0.71 MG/DL (0.55-1.02); GLOMERULAR FILTRATION RATE > 60.0 (>60); GLUCOSE, FASTING 86 MG/DL (70-105); POTASSIUM SERUM 3.6 MEQ/L (3.5-5.1); SODIUM LEVEL 138 MEQ/L (136-145)
--- NOTE | 2016-12-24 23:40 | REPUSA ---
Clinical history: Pain. Comparison: 12/19/2016. Findings: Real-time transabdominal ultrasound images of the pelvis were obtained. There is a single l herbert intrauterine . The crown rump length measures 3.5 cm. heart rate measures 162 bpm. The gestational sac is otherwise unremarkable. A small subchorionic hemorrhage is again noted, measu ring approximate 3.2 x 1.1 cm. This is not significantly change since the prior study. The ovaries ar e grossly stable in appearance. There is no free fluid. Impression: 1. Single live intrauterine measuring 10 weeks 2 days, with estimated due date of 07/20/2017. This is consistent with the previous findings. 2. Stable small subchorionic hemorrhage.
[2016-12-25] MEDS ORDERED: NITROFURANTOIN (MACROBID) 100 MG CAP As Ordered ONE (00:23)
--- NOTE | 2016-12-25 00:31 | EDDOCDS ---
Nurse's Notes [facility] Name: Clarence Oconnell Age: 31 yrs Sex: Female : 1985 Arrival Date: 12/24/2016 Time: 19:59 Bed I5 / M5 Private MD: FABIO Urbina Diagnosis: Vomiting of , unspecified;Urinary tract infection, site not specified Presentation: 12/24 20:06 Presenting complaint: Patient states: Patient reports that started vomiting last b evening. Called Kimmy Mcgregor OB whom suggested to come to ER. Adult Sepsis Screening: The patient does not have new or worsening altered mentation. Patient's respiratory rate is less than 22. Systolic blood pressure is greater than 100. Patient has a qSOFA score of 0- Negative Sepsis Screen. Suicide/Homicide risk assessment- the patient denies having any suicidal and/or homicidal ideations and does not present with any other emotional, behavioral or mental health complaints. Status: The patient is a dependent. Transition of care: patient was not received from another setting of care. 20:06 Acuity: MICHELLE Level 3 b 20:06 Method Of Arrival: Walkin/Carried/Asstd jmb Triage Assessment: 20:08 General: Appears in no apparent distress, Behavior is appropriate for age, cooperative. jmb Pain: Denies pain. HIV screening NA for this visit Offered previously. Neurological: Level of Consciousness is awake, alert, obeys commands, Oriented to person, place, time, Speech is normal, Facial symmetry appears normal, Facial symmetry: tongue is midline. Respiratory: Airway is patent Respiratory effort is even, unlabored, Respiratory pattern is regular, symmetrical. Derm: Skin is normal. Musculoskeletal: Range of motion intact in all extremities. 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 Oral daily 2. progesterone vaginal four times a day 3. Vitamin B-6 Oral as needed for nausea - PMHx: PCOS; - PSHx: none; - Social history: Smoking status: Patient states was never smoker of tobacco. No barriers to communication noted, The patient speaks fluent Faroese, Speaks appropriately for age. - Family history: Not pertinent. - : The pt / caregiver states he / she is not on anticoagulants. Home medication list is obtained from the patient. - Exposure Risk Screening:: None identified. Screenin:54 Screening information is obtained from the patient. Fall risk: No risks identified. kc3 Assistance ADL's: requires no assistance with activities of daily living. Abuse/DV Screen: The patient / caregiver reports he/she is: not in a situation that causes fear, pain or injury. Nutritional screening: No deficits noted. Advance Directives: Currently, there is no health care proxy. home support is adequate. Assessment: 21:52 General: Appears in no apparent distress, comfortable, Behavior is appropriate for age, kc3 cooperative, 11 weeks . Pain: Location: epigastric area Pain currently is 4 out of 10 on a pain scale. Neurological: Level of Consciousness is awake, alert, obeys commands, Oriented to person, place, time. Respiratory: Airway is patent Respiratory effort is even, unlabored. GI: Abd is soft Abd is tender to palpation Reports nausea, vomiting. GI: Bowel sounds present X 4 quads. Derm: Skin is normal. 23:02 GI: Abdomen is non- distended Bowel sounds present X 4 quads. Denies nausea, vomiting. rs3 12/25 00:26 General: Patient instructed on discharge instructions. Patient asked if there were any b questions regarding discharge, patient stated no. IV discontinued per hospital policy. Patient signed discharge instructions. Patient discharged in stable condition. . Vital Signs: 12/24 20:01 BP 123 / 73; Pulse 99; Resp 18; Temp 97.3(T); Pulse Ox 99% on R/A; Weight 74.84 kg (R); dem1 Height 5 ft. 2 in. (157.48 cm) (R); Pain 4/10; 21:54 BP 131 / 75; Pulse 99; Resp 18; Pulse Ox 97% on R/A; Pain 4/10; kc3 12/25 00:24 BP 121 / 73; Pulse 104; Resp 18; Temp 98.9; Pulse Ox 98% ; Pain 0/10; ajs 12/24 20:01 Body Mass Index 30.18 (74.84 kg, 157.48 cm) [facility] Vitals: 12/24 20:01 Log In Time: December 24, 2016 at 19:55. [facility] ED Course: 20:00 Patient visited by Checo Soriano. dem1 20:00 Patient moved to Waiting dem1 20:01 Carlitos [facility] is Private Physician. dem1 20:02 Patient moved to Pre RCE dem1 20:07 Triage Initiated jmb 21:49 Patient moved to Triage 2 kc3 21:55 Patient visited by Deepti Roper RN. kc3 22:22 Brandyn Cuellar RPA-C is PHCP. ck7 22:22 Ger Clifford DO is Attending Physician. ck7 22:22 Patient visited by Brandyn Cuellar RPA-C. ck7 22:38 Patient moved to I5 / M5 jmb 22:53 Patient visited by Brandyn Cuellar RPA-C. ck7 23:02 Inserted saline lock: 20 gauge in left antecubital area and blood collected. Labs rs3 drawn. (by ED staff). 23:24 Patient visited by Brandyn Cuellar RPA-C. ck7 23:58 Patient visited by Brandyn Cuellar RPA-C. ck7 12/25 00:17 BONITA Pace is Referral Physician. ck7 00:24 Patient visited by Manisha Velez. ajs 00:24 US 1st trimester Returned. EDMS 00:26 The patient / caregiver is instructed regarding the plan of care and ED course. jmb 00:26 Discontinued lock intact, bleeding controlled, pressure dressing applied, No jmb redness/swelling at site. No procedures done that require assistance. Administered Medications: 12/24 20:35 Drug: Metoclopramide 10 mg [metoclopramide 10 mg tablet (1 tabs)] Route: PO; jmb 23:00 Drug: NS 0.9% 1000 ml [sodium chloride 0.9 % intravenous solution] Route: IV; Rate: rs3 bolus; Site: left antecubital; 12/25 00:25 Drug: Nitrofurantoin 100 mg [nitrofurantoin macrocrystal 50 mg capsule (2 caps)] Route: jmb PO; Order Results: Lab Order: CBC with Diff; SPEC'M 12/24/16 22:51 Test: WHITE BLOOD COUNT; Value: 7.0; Range: 4.0-10.0; Units: K/mm3; Status: F Test: RED BLOOD COUNT; Value: 3.99; Range: 4.00-5.40; Abnormal: Below low normal; Units: M/mm3; Status: F Test: HEMOGLOBIN; Value: 12.1; Range: 12.0-16.0; Units: g/dl; Status: F Test: HEMATOCRIT; Value: 36.0; Range: 36.0-47.0; Units: %; Status: F Test: MEAN CORPUSCULAR VOLUME; Value: 90.2; Range: 80.0-96.0; Units: fl; Status: F Test: MEAN CORPUSCULAR HEMOGLOBIN; Value: 30.4; Range: 27.0-33.0; Units: pg; Status: F Test: MEAN CORPUSCULAR HGB CONC; Value: 33.6; Range: 32.0-36.5; Units: g/dl; Status: F Test: RED CELL DISTRIBUTION WIDTH; Value: 12.2; Range: 11.5-14.5; Units: %; Status: F Test: PLATELET COUNT, AUTOMATED; Value: 295; Range: 150-450; Units: k/mm3; Status: F Test: NEUTROPHILS %; Value: 67.1; Range: 36.0-66.0; Abnormal: Above high normal; Units: %; Status: F Test: LYMPH %; Value: 26.0; Range: 24.0-44.0; Units: %; Status: F Test: MONO %; Value: 3.7; Range: 0.0-5.0; Units: %; Status: F Test: EOS %; Value: 1.2; Range: 0.0-3.0; Units: %; Status: F Test: BASO %; Value: 0.3; Range: 0.0-1.0; Units: %; Status: F Test: LARGE UNSTAINED CELL %; Value: 1.6; Range: 0.0-4.0; Units: %; Status: F Test: NEUTROPHILS #; Value: 4.7; Range: 1.8-7.7; Units: K/mm3; Status: F Test: LYMPH #; Value: 1.8; Range: 1.5-6.5; Units: K/mm3; Status: F Test: MONO #; Value: 0.3; Range: 0.0-0.8; Units: K/mm3; Status: F Test: EOS #; Value: 0.1; Range: 0.0-0.50; Units: K/mm3; Status: F Test: BASO #; Value: 0.0; Range: 0.0-0.2; Units: K/mm3; Status: F Test: LARGE UNSTAINED CELL #; Value: 0.1; Range: 0.0-0.4; Units: K/mm3; Status: F Lab Order: MED Profile; SPEC'12/24/16 22:51 Test: GLUCOSE, FASTING; Value: 86; Range: 70-105; Units: MG/DL; Status: F Test: BLOOD UREA NITROGEN; Value: 11; Range: 7-18; Units: MG/DL; Status: F Test: CREATININE FOR GFR; Value: 0.71; Range: 0.55-1.02; Units: MG/DL; Status: F Test: GLOMERULAR FILTRATION RATE; Value: > 60.0; Range: >60; Status: F Test: SODIUM LEVEL; Value: 138; Range: 136-145; Units: MEQ/L; Status: F Test: POTASSIUM SERUM; Value: 3.6; Range: 3.5-5.1; Units: MEQ/L; Status: F Test: CHLORIDE LEVEL; Value: 101; Range: 98-107; Units: MEQ/L; Status: F Test: CARBON DIOXIDE LEVEL; Value: 25; Range: 21-32; Units: MEQ/L; Status: F Test: ANION GAP; Value: 12; Range: 8-16; Units: MEQ/L; Status: F Test: CALCIUM LEVEL; Value: 9.3; Range: 8.5-10.1; Units: MG/DL; Status: F Test Note: ; Units are mL/min/1.73 m2 Chronic Kidney Disease Staging per NKF: Stage I & II GFR >=60 Normal to Mildly Decreased Stage III GFR 30-59 Moderately Decreased Stage IV GFR 15-29 Severely Decreased Stage V GFR <15 Very Little GFR Left ESRD GFR <15 on EQUIPMENT CLEANER Lab Order: UA; SPEC'12/24/16 22:39 Test: APPEARANCE, URINE; Value: CLOUDY; Range: CLEAR; Abnormal: Above high normal; Status: F Test: COLOR, URINE; Value: MARIBELL; Range: YELLOW; Status: F Test: PH,URINE; Value: 5.0; Range: 5.0-9.0; Units: UNITS; Status: F Test: SPECIFIC GRAVITY URINE AUTO; Value: 1.027; Range: 1.002-1.035; Status: F Test: PROTEIN, URINE AUTO; Value: 1+; Range: NEGATIVE; Abnormal: Above high normal; Units: mg/dL; Status: F Test: GLUCOSE, URINE (UA) AUTO; Value: NEGATIVE; Range: NEGATIVE; Units: mg/dL; Status: F Test: KETONE, URINE AUTO; Value: 2+; Range: NEGATIVE; Abnormal: Above high normal; Units: mg/dL; Status: F Test: UROBILINOGEN, URINE AUTO; Value: 0.2; Range: 0.0-2.0; Units: mg/dL; Status: F Test: BILIRUBIN, URINE AUTO; Value: NEGATIVE; Range: NEGATIVE; Status: F Test: NITRITE, URINE AUTO; Value: NEGATIVE; Range: NEGATIVE; Status: F Test: LEUKOCYTE ESTERASE, URINE AUTO; Value: NEGATIVE; Range: NEGATIVE; Status: F Test: BLOOD, URINE BLOOD; Value: 3+; Range: NEGATIVE; Abnormal: Above high normal; Status: F Test: WBC, URINE AUTO; Value: 29; Range: 0-3; Abnormal: Above high normal; Units: /HPF; Status: F Test: RBC, URINE AUTO; Value: 16; Range: 0-3; Abnormal: Above high normal; Units: /HPF; Status: F Test: BACTERIA, URINE AUTO; Value: 3+; Range: NEGATIVE; Abnormal: Above high normal; Status: F Test: SQUAMOUS EPITHELIAL CELL UR AU; Value: 11; Range: 0-6; Units: /HPF; Status: F Test: MUCUS, URINE; Value: LARGE; Range: NEGATIVE; Status: F Test: HYALINE CAST, URINE AUTO; Value: 0; Range: 0-1; Units: /LPF; Status: F Test: AMORPHOUS SEDIMENT; Value: SMALL; Range: NEGATIVE; Abnormal: Above high normal; Status: F Radiology Order: US 1st trimester Test: US 1st trimester REASON FOR EXAMINATION: FHT CHECK; ; Clinical history: Pain.; Comparison: 12/19/2016.; Findings: Real-time transabdominal ultrasound images of the pelvis were obtained. There is a single l; herbert intrauterine . The crown rump length measures 3.5 cm. heart rate measures 162 bpm.; The gestational sac is otherwise unremarkable. A small subchorionic hemorrhage is again noted, measu; ring approximate 3.2 x 1.1 cm. This is not significantly change since the prior study. The ovaries ar; e grossly stable in appearance. There is no free fluid.; Impression:; 1. Single live intrauterine measuring 10 weeks 2 days, with estimated due date of 07/20/2017.; This is consistent with the previous findings.; 2. Stable small subchorionic hemorrhage.; ; Outcome: 00:17 Discharge ordered by Provider. ck7 00:26 Discharge Assessment: Patient awake, alert and oriented x 3. No cognitive and/or jmb functional deficits noted. Patient verbalized understanding of disposition instructions. Patient awake and alert. obeys commands, Oriented to person, place and time. Patient verbalized understanding of disposition instructions. Patient has no functional deficits. patient administered narcotics - no. The following High Risk Discharge criteria are identified: None. Discharged to home ambulatory. Condition: stable Condition: improved. Discharge instructions given to patient, Instructed on discharge instructions, follow up and referral plans. medication usage, Demonstrated understanding of instructions, medications, Pt was receptive of discharge instructions/ teaching. Prescriptions given X 2. No special radiology studies were completed. Property sent home with patient. 00:30 Patient left the ED. lina Signatures: Dispatcher [employer] Renata Elizabeth,RN RN rs3 Manisha Velez Demeishia dem1 Kwaczala, Christopher, RPA-C RPA-Cck7 Mike Orellana RN RN jmb Crane, Kelsi,RN RN kc3 MTDD
--- NOTE | 2016-12-25 00:31 | EDDOCDS ---
Physician Documentation [facility] Name: Clarence Oconnell Age: 31 yrs Sex: Female : 1985 Arrival Date: 12/24/2016 Time: 19:59 Bed I5 / M5 Private MD: Carlitos [facility] [place]: 12/25/16 00:17 Discharged to Home/Self Care. Impression: Vomiting of , unspecified, Urinary tract infection, site not specified. - Condition is Stable. - Discharge Instructions: Hyperemesis Gravidarum, Urinary Tract Infection. - Prescriptions for ZOFRAN ODT 4 mg - dissolve 1 tablet by ORAL route 4 times per day As needed do not chew, do not swallow whole; 10 tablet. Macrobid 100 mg Oral Capsule - take 100 milligram by ORAL route every 12 hours for 10 days; 20 capsule. - Medication Reconciliation, Local Pharmacy Hours form. - Follow up: Kimmy Mcgregor OB; When: 1 - 2 days; Reason: Recheck today's complaints, Continuance of care. - Problem is new. - Symptoms have improved. - Notes: USE MEDICATIONS INSTRUCTED, FOLLOW UP WITH KIMMY MCGREGOR OB TOMORROW, RETURN TO THE ER IF THE SYMPTOMS WORSEN OR BECOME CONCERNING Historical: - Allergies: No known drug Allergies; - Home Meds: 1. Oral daily 2. progesterone vaginal four times a day 3. Vitamin B-6 Oral as needed for nausea - PMHx: PCOS; - PSHx: none; - Social history: Smoking status: Patient states was never smoker of tobacco. No barriers to communication noted, The patient speaks fluent Prydeinig, Speaks appropriately for age. - Family history: Not pertinent. - : The pt / caregiver states he / she is not on anticoagulants. Home medication list is obtained from the patient. - Exposure Risk Screening:: None identified. 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 Vital Signs: 20:01 BP 123 / 73; Pulse 99; Resp 18; Temp 97.3(T); Pulse Ox 99% on R/A; Weight 74.84 kg / dem1 164.99 lbs (R); Height 5 ft. 2 in. (157.48 cm) (R); Pain 4/10; 21:54 BP 131 / 75; Pulse 99; Resp 18; Pulse Ox 97% on R/A; Pain 4/10; kc3 12/25 00:24 BP 121 / 73; Pulse 104; Resp 18; Temp 98.9; Pulse Ox 98% ; Pain 0/10; ajs 12/24 20:01 Body Mass Index 30.18 (74.84 kg, 157.48 cm) dem1 MDM: 12/24 20:21 Metoclopramide 10 mg PO once ordered. ef1 22:31 IV Saline Lock ordered. ck7 22:31 NS 0.9% 1000 ml IV at bolus once ordered. ck7 22:32 CBC with Diff Ordered. EDMS 22:32 MED Profile Ordered. EDMS 22:32 UA Ordered. EDMS 22:35 US 1st trimester Ordered. EDMS 23:31 CBC with Diff Reviewed. ck7 23:31 UA Reviewed. ck7 23:31 MED Profile Reviewed. ck7 12/25 00:18 Nitrofurantoin 100 mg PO once ordered. ck7 00:20 Fluid Challenge ordered. ck7 Administered Medications: 12/24 20:35 Drug: Metoclopramide 10 mg [metoclopramide 10 mg tablet (1 tabs)] Route: PO; b 23:00 Drug: NS 0.9% 1000 ml [sodium chloride 0.9 % intravenous solution] Route: IV; Rate: rs3 bolus; Site: left antecubital; 12/25 00:25 Drug: Nitrofurantoin 100 mg [nitrofurantoin macrocrystal 50 mg capsule (2 caps)] Route: jmb PO; Signatures: Dispatcher [employer] EDMS Alexa Gaviria PA-C PAKaterineC ef1 Brandyn Cuellar RPA-C RPA-Cck7 Mike OrellanaRN RN jmb Deepti Roper,MARIANA RN kc3 Renata Dahl RN rs3 MTDD
--- NOTE | 2016-12-27 01:31 | EDDOCDS ---
Physician Documentation [facility] Name: Clarence Oconnell Age: 31 yrs Sex: Female : 1985 Arrival Date: 12/24/2016 Time: 19:59 Bed I5 / M5 Private MD: Carlitos [facility] [place] Disposition: 12/25/16 00:17 Discharged to Home/Self Care. Impression: Vomiting of , unspecified, Urinary tract infection, site not specified. - Condition is Stable. - Discharge Instructions: Hyperemesis Gravidarum, Urinary Tract Infection. - Prescriptions for ZOFRAN ODT 4 mg - dissolve 1 tablet by ORAL route 4 times per day As needed do not chew, do not swallow whole; 10 tablet. Macrobid 100 mg Oral Capsule - take 100 milligram by ORAL route every 12 hours for 10 days; 20 capsule. - Medication Reconciliation, Local Pharmacy Hours form. - Follow up: Kimmy Mcgregor OB; When: 1 - 2 days; Reason: Recheck today's complaints, Continuance of care. - Problem is new. - Symptoms have improved. - Notes: USE MEDICATIONS INSTRUCTED, FOLLOW UP WITH KIMMY MCGREGOR OB TOMORROW, RETURN TO THE ER IF THE SYMPTOMS WORSEN OR BECOME CONCERNING Historical: - Allergies: No known drug Allergies; - Home Meds: 1. Oral daily 2. progesterone vaginal four times a day 3. Vitamin B-6 Oral as needed for nausea - PMHx: PCOS; - PSHx: none; - Social history: Smoking status: Patient states was never smoker of tobacco. No barriers to communication noted, The patient speaks fluent Guamanian, Speaks appropriately for age. - Family history: Not pertinent. - : The pt / caregiver states he / she is not on anticoagulants. Home medication list is obtained from the patient. - Exposure Risk Screening:: None identified. 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 2 in. (157.48 cm) (R); Pain 4/10; 21:54 BP 131 / 75; Pulse 99; Resp 18; Pulse Ox 97% on R/A; Pain 4/10; kc3 12/25 00:24 BP 121 / 73; Pulse 104; Resp 18; Temp 98.9; Pulse Ox 98% ; Pain 0/10; ajs 12/24 20:01 Body Mass Index 30.18 (74.84 kg, 157.48 cm) dem1 MDM: 12/24 20:21 Metoclopramide 10 mg PO once ordered. ef1 22:31 IV Saline Lock ordered. ck7 22:31 NS 0.9% 1000 ml IV at bolus once ordered. ck7 22:32 CBC with Diff Ordered. EDMS 22:32 MED Profile Ordered. EDMS 22:32 UA Ordered. EDMS 22:35 US 1st trimester Ordered. EDMS 23:31 CBC with Diff Reviewed. ck7 23:31 UA Reviewed. ck7 23:31 MED Profile Reviewed. ck7 12/25 00:18 Nitrofurantoin 100 mg PO once ordered. ck7 00:20 Fluid Challenge ordered. ck7 01:54 Financial registration complete. hs2 01:54 [facility] Payment Agreement was scanned into [employer] and attached to record. hs2 12:42 T-Sheet-- Draft Copy was scanned into [employer] and attached to record. gb 12:42 Radiology Report was scanned into [employer] and attached to record. gb Administered Medications: 12/24 20:35 Drug: Metoclopramide 10 mg [metoclopramide 10 mg tablet (1 tabs)] Route: PO; b 23:00 Drug: NS 0.9% 1000 ml [sodium chloride 0.9 % intravenous solution] Route: IV; Rate: rs3 bolus; Site: left antecubital; 12/25 00:25 Drug: Nitrofurantoin 100 mg [nitrofurantoin macrocrystal 50 mg capsule (2 caps)] Route: jmb PO; Signatures: Dispatcher [employer] EDMS Caro Shaw, Reg Reg gb Alexa Gaviria PA-C PANeal ef1 Brandyn Cuellar, RPA-C RPA-Cck7 Miek OrellanaRN RN jessicab Deepti Roper RN RN kc3 Penelope Terrazas, Reg Reg hs2 Renata Dahl RN rs3 The chart was reviewed and I authenticate all verbal orders and agree with the evaluation and treatment provided.Attachments: 01:54 [facility] Payment Agreement hs2 12:42 T-Sheet-- Draft Copy gb Chart Complete MTDD
--- NOTE | 2016-12-27 01:31 | EDDOCDS ---
Nurse's Notes [facility] Name: Clarence Oconnell Age: 31 yrs Sex: Female : 1985 Arrival Date: 12/24/2016 Time: 19:59 Bed I5 / M5 Private MD: FABIO Urbina Diagnosis: Vomiting of , unspecified;Urinary tract infection, site not specified Presentation: 12/24 20:06 Presenting complaint: Patient states: Patient reports that started vomiting last b evening. Called Kimmy Mcgregor OB whom suggested to come to ER. Adult Sepsis Screening: The patient does not have new or worsening altered mentation. Patient's respiratory rate is less than 22. Systolic blood pressure is greater than 100. Patient has a qSOFA score of 0- Negative Sepsis Screen. Suicide/Homicide risk assessment- the patient denies having any suicidal and/or homicidal ideations and does not present with any other emotional, behavioral or mental health complaints. Status: The patient is a dependent. Transition of care: patient was not received from another setting of care. 20:06 Acuity: MICHELLE Level 3 b 20:06 Method Of Arrival: Walkin/Carried/Asstd jmb Triage Assessment: 20:08 General: Appears in no apparent distress, Behavior is appropriate for age, cooperative. jmb Pain: Denies pain. HIV screening NA for this visit Offered previously. Neurological: Level of Consciousness is awake, alert, obeys commands, Oriented to person, place, time, Speech is normal, Facial symmetry appears normal, Facial symmetry: tongue is midline. Respiratory: Airway is patent Respiratory effort is even, unlabored, Respiratory pattern is regular, symmetrical. Derm: Skin is normal. Musculoskeletal: Range of motion intact in all extremities. TRAIN GATEMAN: 20:08 LMP N/A - , Patient currently 11 weeks jmb Historical: - Allergies: No known drug Allergies; - Home Meds: 1. Oral daily 2. progesterone vaginal four times a day 3. Vitamin B-6 Oral as needed for nausea - PMHx: PCOS; - PSHx: none; - Social history: Smoking status: Patient states was never smoker of tobacco. No barriers to communication noted, The patient speaks fluent Algerian, Speaks appropriately for age. - Family history: Not pertinent. - : The pt / caregiver states he / she is not on anticoagulants. Home medication list is obtained from the patient. - Exposure Risk Screening:: None identified. Screenin:54 Screening information is obtained from the patient. Fall risk: No risks identified. kc3 Assistance ADL's: requires no assistance with activities of daily living. Abuse/DV Screen: The patient / caregiver reports he/she is: not in a situation that causes fear, pain or injury. Nutritional screening: No deficits noted. Advance Directives: Currently, there is no health care proxy. home support is adequate. Assessment: 21:52 General: Appears in no apparent distress, comfortable, Behavior is appropriate for age, kc3 cooperative, 11 weeks . Pain: Location: epigastric area Pain currently is 4 out of 10 on a pain scale. Neurological: Level of Consciousness is awake, alert, obeys commands, Oriented to person, place, time. Respiratory: Airway is patent Respiratory effort is even, unlabored. GI: Abd is soft Abd is tender to palpation Reports nausea, vomiting. GI: Bowel sounds present X 4 quads. Derm: Skin is normal. 23:02 GI: Abdomen is non- distended Bowel sounds present X 4 quads. Denies nausea, vomiting. rs3 12/25 00:26 General: Patient instructed on discharge instructions. Patient asked if there were any b questions regarding discharge, patient stated no. IV discontinued per hospital policy. Patient signed discharge instructions. Patient discharged in stable condition. . Vital Signs: 12/24 20:01 BP 123 / 73; Pulse 99; Resp 18; Temp 97.3(T); Pulse Ox 99% on R/A; Weight 74.84 kg (R); dem1 Height 5 ft. 2 in. (157.48 cm) (R); Pain 4/10; 21:54 BP 131 / 75; Pulse 99; Resp 18; Pulse Ox 97% on R/A; Pain 4/10; kc3 12/25 00:24 BP 121 / 73; Pulse 104; Resp 18; Temp 98.9; Pulse Ox 98% ; Pain 0/10; ajs 12/24 20:01 Body Mass Index 30.18 (74.84 kg, 157.48 cm) [facility] Vitals: 12/24 20:01 Log In Time: December 24, 2016 at 19:55. [facility] ED Course: 20:00 Patient visited by Bo, Demeishia. dem1 20:00 Patient moved to Waiting dem1 20:01 Carlitos [facility] is Private Physician. dem1 20:02 Patient moved to Pre RCE dem1 20:07 Triage Initiated jmb 21:49 Patient moved to Triage 2 kc3 21:55 Patient visited by Deepti Roper,RN. kc3 22:22 Brandyn Cuellar RPA-C is PHCP. ck7 22:22 Ger Clifford DO is Attending Physician. ck7 22:22 Patient visited by Brandyn Cuellar RPA-C. ck7 22:38 Patient moved to I5 / M5 jmb 22:53 Patient visited by Brandyn Cuellar RPA-C. ck7 23:02 Inserted saline lock: 20 gauge in left antecubital area and blood collected. Labs rs3 drawn. (by ED staff). 23:24 Patient visited by Brandyn Cuellar RPA-C. ck7 23:58 Patient visited by Brandyn Cuellar RPA-C. ck7 12/25 00:17 BONITA Pace is Referral Physician. ck7 00:24 Patient visited by Manisha Velez. ajs 00:24 US 1st trimester Returned. EDMS 00:26 The patient / caregiver is instructed regarding the plan of care and ED course. jmb 00:26 Discontinued lock intact, bleeding controlled, pressure dressing applied, No jmb redness/swelling at site. No procedures done that require assistance. 01:54 [facility] [place] was scanned into [employer] and attached to record. hs2 12:42 T-Sheet-- Draft Copy was scanned into [employer] and attached to record. gb 12:42 Radiology Report was scanned into [employer] and attached to record. gb Administered Medications: 12/24 20:35 Drug: Metoclopramide 10 mg [metoclopramide 10 mg tablet (1 tabs)] Route: PO; jmb 23:00 Drug: NS 0.9% 1000 ml [sodium chloride 0.9 % intravenous solution] Route: IV; Rate: rs3 bolus; Site: left antecubital; 12/25 00:25 Drug: Nitrofurantoin 100 mg [nitrofurantoin macrocrystal 50 mg capsule (2 caps)] Route: jmb PO; Order Results: Lab Order: CBC with Diff; SPEC'M 12/24/16 22:51 Test: WHITE BLOOD COUNT; Value: 7.0; Range: 4.0-10.0; Units: K/mm3; Status: F Test: RED BLOOD COUNT; Value: 3.99; Range: 4.00-5.40; Abnormal: Below low normal; Units: M/mm3; Status: F Test: HEMOGLOBIN; Value: 12.1; Range: 12.0-16.0; Units: g/dl; Status: F Test: HEMATOCRIT; Value: 36.0; Range: 36.0-47.0; Units: %; Status: F Test: MEAN CORPUSCULAR VOLUME; Value: 90.2; Range: 80.0-96.0; Units: fl; Status: F Test: MEAN CORPUSCULAR HEMOGLOBIN; Value: 30.4; Range: 27.0-33.0; Units: pg; Status: F Test: MEAN CORPUSCULAR HGB CONC; Value: 33.6; Range: 32.0-36.5; Units: g/dl; Status: F Test: RED CELL DISTRIBUTION WIDTH; Value: 12.2; Range: 11.5-14.5; Units: %; Status: F Test: PLATELET COUNT, AUTOMATED; Value: 295; Range: 150-450; Units: k/mm3; Status: F Test: NEUTROPHILS %; Value: 67.1; Range: 36.0-66.0; Abnormal: Above high normal; Units: %; Status: F Test: LYMPH %; Value: 26.0; Range: 24.0-44.0; Units: %; Status: F Test: MONO %; Value: 3.7; Range: 0.0-5.0; Units: %; Status: F Test: EOS %; Value: 1.2; Range: 0.0-3.0; Units: %; Status: F Test: BASO %; Value: 0.3; Range: 0.0-1.0; Units: %; Status: F Test: LARGE UNSTAINED CELL %; Value: 1.6; Range: 0.0-4.0; Units: %; Status: F Test: NEUTROPHILS #; Value: 4.7; Range: 1.8-7.7; Units: K/mm3; Status: F Test: LYMPH #; Value: 1.8; Range: 1.5-6.5; Units: K/mm3; Status: F Test: MONO #; Value: 0.3; Range: 0.0-0.8; Units: K/mm3; Status: F Test: EOS #; Value: 0.1; Range: 0.0-0.50; Units: K/mm3; Status: F Test: BASO #; Value: 0.0; Range: 0.0-0.2; Units: K/mm3; Status: F Test: LARGE UNSTAINED CELL #; Value: 0.1; Range: 0.0-0.4; Units: K/mm3; Status: F Lab Order: MED Profile; SPEC'M 12/24/16 22:51 Test: GLUCOSE, FASTING; Value: 86; Range: 70-105; Units: MG/DL; Status: F Test: BLOOD UREA NITROGEN; Value: 11; Range: 7-18; Units: MG/DL; Status: F Test: CREATININE FOR GFR; Value: 0.71; Range: 0.55-1.02; Units: MG/DL; Status: F Test: GLOMERULAR FILTRATION RATE; Value: > 60.0; Range: >60; Status: F Test: SODIUM LEVEL; Value: 138; Range: 136-145; Units: MEQ/L; Status: F Test: POTASSIUM SERUM; Value: 3.6; Range: 3.5-5.1; Units: MEQ/L; Status: F Test: CHLORIDE LEVEL; Value: 101; Range: 98-107; Units: MEQ/L; Status: F Test: CARBON DIOXIDE LEVEL; Value: 25; Range: 21-32; Units: MEQ/L; Status: F Test: ANION GAP; Value: 12; Range: 8-16; Units: MEQ/L; Status: F Test: CALCIUM LEVEL; Value: 9.3; Range: 8.5-10.1; Units: MG/DL; Status: F Test Note: ; Units are mL/min/1.73 m2 Chronic Kidney Disease Staging per NKF: Stage I & II GFR >=60 Normal to Mildly Decreased Stage III GFR 30-59 Moderately Decreased Stage IV GFR 15-29 Severely Decreased Stage V GFR <15 Very Little GFR Left ESRD GFR <15 on DOCUMENT REVIEW SPECIALIST Lab Order: UA; SPEC'M 12/24/16 22:39 Test: APPEARANCE, URINE; Value: CLOUDY; Range: CLEAR; Abnormal: Above high normal; Status: F Test: COLOR, URINE; Value: MARIBELL; Range: YELLOW; Status: F Test: PH,URINE; Value: 5.0; Range: 5.0-9.0; Units: UNITS; Status: F Test: SPECIFIC GRAVITY URINE AUTO; Value: 1.027; Range: 1.002-1.035; Status: F Test: PROTEIN, URINE AUTO; Value: 1+; Range: NEGATIVE; Abnormal: Above high normal; Units: mg/dL; Status: F Test: GLUCOSE, URINE (UA) AUTO; Value: NEGATIVE; Range: NEGATIVE; Units: mg/dL; Status: F Test: KETONE, URINE AUTO; Value: 2+; Range: NEGATIVE; Abnormal: Above high normal; Units: mg/dL; Status: F Test: UROBILINOGEN, URINE AUTO; Value: 0.2; Range: 0.0-2.0; Units: mg/dL; Status: F Test: BILIRUBIN, URINE AUTO; Value: NEGATIVE; Range: NEGATIVE; Status: F Test: NITRITE, URINE AUTO; Value: NEGATIVE; Range: NEGATIVE; Status: F Test: LEUKOCYTE ESTERASE, URINE AUTO; Value: NEGATIVE; Range: NEGATIVE; Status: F Test: BLOOD, URINE BLOOD; Value: 3+; Range: NEGATIVE; Abnormal: Above high normal; Status: F Test: WBC, URINE AUTO; Value: 29; Range: 0-3; Abnormal: Above high normal; Units: /HPF; Status: F Test: RBC, URINE AUTO; Value: 16; Range: 0-3; Abnormal: Above high normal; Units: /HPF; Status: F Test: BACTERIA, URINE AUTO; Value: 3+; Range: NEGATIVE; Abnormal: Above high normal; Status: F Test: SQUAMOUS EPITHELIAL CELL UR AU; Value: 11; Range: 0-6; Units: /HPF; Status: F Test: MUCUS, URINE; Value: LARGE; Range: NEGATIVE; Status: F Test: HYALINE CAST, URINE AUTO; Value: 0; Range: 0-1; Units: /LPF; Status: F Test: AMORPHOUS SEDIMENT; Value: SMALL; Range: NEGATIVE; Abnormal: Above high normal; Status: F Radiology Order: US 1st trimester Test: US 1st trimester REASON FOR EXAMINATION: FHT CHECK; ; Clinical history: Pain.; Comparison: 12/19/2016.; Findings: Real-time transabdominal ultrasound images of the pelvis were obtained. There is a single l; herbert intrauterine . The crown rump length measures 3.5 cm. heart rate measures 162 bpm.; The gestational sac is otherwise unremarkable. A small subchorionic hemorrhage is again noted, measu; ring approximate 3.2 x 1.1 cm. This is not significantly change since the prior study. The ovaries ar; e grossly stable in appearance. There is no free fluid.; Impression:; 1. Single live intrauterine measuring 10 weeks 2 days, with estimated due date of 07/20/2017.; This is consistent with the previous findings.; 2. Stable small subchorionic hemorrhage.; ; Outcome: 00:17 Discharge ordered by Provider. ck7 00:26 Discharge Assessment: Patient awake, alert and oriented x 3. No cognitive and/or jmb functional deficits noted. Patient verbalized understanding of disposition instructions. Patient awake and alert. obeys commands, Oriented to person, place and time. Patient verbalized understanding of disposition instructions. Patient has no functional deficits. patient administered narcotics - no. The following High Risk Discharge criteria are identified: None. Discharged to home ambulatory. Condition: stable Condition: improved. Discharge instructions given to patient, Instructed on discharge instructions, follow up and referral plans. medication usage, Demonstrated understanding of instructions, medications, Pt was receptive of discharge instructions/ teaching. Prescriptions given X 2. No special radiology studies were completed. Property sent home with patient. 00:30 Patient left the ED. lina Signatures: Dispatcher [employer] EDME Caro Shaw, Reg Reg gb Renata Dahl,RN RN rs3 Manisha Velez Demeishia dem1 Kwaczala, Christopher, HINA-C RPA-Cck7 Mike Orellana RN RN jmb Crane, Kelsi, RN RN kc3 Penelope Terrazas, Reg Reg hs2 Chart Complete MTDD
--- NOTE | 2016-12-27 01:31 | EDDOCDS ---
Physician Documentation [facility] Name: Clarence Oconnell Age: 31 yrs Sex: Female : 1985 Arrival Date: 12/24/2016 Time: 19:59 Bed I5 / M5 Private [place] [facility] [place]position: 12/25/16 00:17 Discharged to Home/Self Care. Impression: Vomiting of , unspecified, Urinary tract infection, site not specified. - Condition is Stable. - Discharge Instructions: Hyperemesis Gravidarum, Urinary Tract Infection. - Prescriptions for ZOFRAN ODT 4 mg - dissolve 1 tablet by ORAL route 4 times per day As needed do not chew, do not swallow whole; 10 tablet. Macrobid 100 mg Oral Capsule - take 100 milligram by ORAL route every 12 hours for 10 days; 20 capsule. - Medication Reconciliation, Local Pharmacy Hours form. - Follow up: Kimmy Mcgregor OB; When: 1 - 2 days; Reason: Recheck today's complaints, Continuance of care. - Problem is new. - Symptoms have improved. - Notes: USE MEDICATIONS INSTRUCTED, FOLLOW UP WITH KIMMY MCGREGOR OB TOMORROW, RETURN TO THE ER IF THE SYMPTOMS WORSEN OR BECOME CONCERNING Historical: - Allergies: No known drug Allergies; - Home Meds: 1. Oral daily 2. progesterone vaginal four times a day 3. Vitamin B-6 Oral as needed for nausea - PMHx: PCOS; - PSHx: none; - Social history: Smoking status: Patient states was never smoker of tobacco. No barriers to communication noted, The patient speaks fluent Turkmen, Speaks appropriately for age. - Family history: Not pertinent. - : The pt / caregiver states he / she is not on anticoagulants. Home medication list is obtained from the patient. - Exposure Risk Screening:: None identified. MEDICAL TECHNICAL WRITER: 12/24 20:08 LMP N/A - , Patient currently [address] [facility] Vital Signs: 20:01 BP 123 / 73; Pulse 99; Resp 18; Temp 97.3(T); Pulse Ox 99% on R/A; Weight 74.84 kg / dem1 164.99 lbs (R); Height 5 ft. 2 in. (157.48 cm) (R); Pain 4/10; 21:54 BP 131 / 75; Pulse 99; Resp 18; Pulse Ox 97% on R/A; Pain 4/10; kc3 12/25 00:24 BP 121 / 73; Pulse 104; Resp 18; Temp 98.9; Pulse Ox 98% ; Pain 0/10; ajs 12/24 20:01 Body Mass Index 30.18 (74.84 kg, 157.48 cm) dem1 MDM: 12/24 20:21 Metoclopramide 10 mg PO once ordered. ef1 22:31 IV Saline Lock ordered. ck7 22:31 NS 0.9% 1000 ml IV at bolus once ordered. ck7 22:32 CBC with Diff Ordered. EDMS 22:32 MED Profile Ordered. EDMS 22:32 UA Ordered. EDMS 22:35 US 1st trimester Ordered. EDMS 23:31 CBC with Diff Reviewed. ck7 23:31 UA Reviewed. ck7 23:31 MED Profile Reviewed. ck7 12/25 00:18 Nitrofurantoin 100 mg PO once ordered. ck7 00:20 Fluid Challenge ordered. ck7 01:54 Financial registration complete. hs2 01:54 [facility] Payment Agreement was scanned into [employer] and attached to record. hs2 12:42 T-Sheet-- Draft Copy was scanned into [employer] and attached to record. gb 12:42 Radiology Report was scanned into [employer] and attached to record. gb Administered Medications: 12/24 20:35 Drug: Metoclopramide 10 mg [metoclopramide 10 mg tablet (1 tabs)] Route: PO; b 23:00 Drug: NS 0.9% 1000 ml [sodium chloride 0.9 % intravenous solution] Route: IV; Rate: rs3 bolus; Site: left antecubital; 12/25 00:25 Drug: Nitrofurantoin 100 mg [nitrofurantoin macrocrystal 50 mg capsule (2 caps)] Route: jmb PO; Signatures: Dispatcher [employer] EDMS Caro Shaw, Reg Reg gb Alexa Gaviria PA-C PANeal ef1 Brandyn Cuellar, RPA-C RPA-Cck7 Mike OrellanaRN RN jessicab Deepti Roper RN RN kc3 Penelope Terrazas, Reg Reg hs2 Renata Dahl RN rs3 The chart was reviewed and I authenticate all verbal orders and agree with the evaluation and treatment provided.Attachments: 01:54 [facility] Payment Agreement hs2 12:42 T-Sheet-- Draft Copy gb Chart Complete MTDD
== END 2016-12-25 00:30 | disposition home or self-care (01) ==
LOC: M ED 19:59
DX: O21.9 Vomiting of pregnancy, unspecified (principal); O23.41 Unspecified infection of urinary tract in pregnancy, first trimester; Z3A.10 10 weeks gestation of pregnancy; O99.281 Endocrine, nutritional and metabolic diseases complicating pregnancy, first trimester; E28.2 Polycystic ovarian syndrome

== ENCOUNTER 2017-01-12 08:55 | Emergency (ER) | payer OTHER ==
[2017-01-12 10:24] LABS: BASO % 0.4 % (0.0-1.0); EOS # 0.1 K/mm3 (0.0-0.50); EOS % 2.5 % (0.0-3.0); LARGE UNSTAINED CELL # 0.1 K/mm3 (0.0-0.4); LARGE UNSTAINED CELL % 1.6 % (0.0-4.0); LYMPH # 1.3 K/mm3 (1.5-6.5); LYMPH % 23.1 % (24.0-44.0); MEAN CORPUSCULAR HEMOGLOBIN 30.6 pg (27.0-33.0); MEAN CORPUSCULAR HGB CONC 33.8 g/dl (32.0-36.5); MEAN CORPUSCULAR VOLUME 90.7 fl (80.0-96.0); MONO # 0.3 K/mm3 (0.0-0.8); MONO % 5.8 % (0.0-5.0); NEUTROPHILS # 3.6 K/mm3 (1.8-7.7); NEUTROPHILS % 66.6 % (36.0-66.0); PLATELET COUNT, AUTOMATED 321 k/mm3 (150-450); RED CELL DISTRIBUTION WIDTH 12.4 % (11.5-14.5); WHITE BLOOD COUNT 5.3 K/mm3 (4.0-10.0)
[2017-01-12 10:47] LABS: ANION GAP 9 MEQ/L (8-16); BLOOD UREA NITROGEN 11 MG/DL (7-18); CALCIUM LEVEL 9.3 MG/DL (8.5-10.1); CARBON DIOXIDE LEVEL 27 MEQ/L (21-32); CHLORIDE LEVEL 102 MEQ/L (98-107); CREATININE FOR GFR 0.64 MG/DL (0.55-1.02); GLOMERULAR FILTRATION RATE > 60.0 (>60); GLUCOSE, FASTING 80 MG/DL (70-105); POTASSIUM SERUM 3.8 MEQ/L (3.5-5.1); SODIUM LEVEL 138 MEQ/L (136-145)
--- NOTE | 2017-01-12 11:06 | REP ---
Clinical: Early with abdominal pain and cramping. Technique: Transabdominal first trimester obstetrical ultrasound with color Doppler evaluation. Findings: Ultrasound examination demonstrates a single live intrauterine in transverse presentation. motion is appreciated. heart rate equals 153 beats per minute. No gross abnormalities are identified. Biometrical measurements correspond to 13 weeks 2 days gestational age with estimated date of delivery 07/18/2017. Placenta identified anteriorly and grade zero. Amniotic fluid volume is normal. Cervix measures 3.3 cm in length and appears closed. Impression: Live intrauterine at 13 weeks 2 days gestational age. No gross abnormalities are identified. Signed by Mando Branch MD 01/12/2017 10:58 A
--- NOTE | 2017-01-12 13:57 | EDDOCDS ---
Nurse's Notes [facility] Name: Clarence Oconnell Age: 31 yrs Sex: Female : 1985 Arrival Date: 01/12/2017 Time: 08:55 Bed I5 / M5 Private MD: FABIO Urbina Diagnosis: Nausea and vomiting Presentation: 01/12 09:02 Presenting complaint: Patient states: n/v x 3 days with lower abdominal pain reported. kc3 Pt reports finished Macrobid this past for UTI but reports "feels like I still have a UTI." Pt reports is 12 weeks . Risk factors: the patient reports no vaginal bleeding. Adult Sepsis Screening: The patient does not have new or worsening altered mentation. Patient's respiratory rate is less than 22. Systolic blood pressure is greater than 100. Patient has a qSOFA score of 0- Negative Sepsis Screen. Suicide/Homicide risk assessment- the patient denies having any suicidal and/or homicidal ideations and does not present with any other emotional, behavioral or mental health complaints. Status: Patient is not a digital field service technician or dependent. Transition of care: patient was not received from another setting of care. 09:02 Acuity: MICHELLE Level 3 kc3 09:02 Method Of Arrival: Walkin/Carried/Asstd kc3 Triage Assessment: 09:06 General: Appears in no apparent distress, comfortable, Behavior is appropriate for age, kc3 cooperative. Pain: Location: abdomen Pain currently is 5 out of 10 on a pain scale. HIV screening NA for this visit Offered previously. GI: Abdomen is flat, Reports nausea, vomiting. MOLECULAR PATHOLOGIST: 09:07 LMP 10/10/2016, Verified, EDC 07/17/2017, Gestational age from LMP: 13 weeks 3 kc3 days Historical: - Allergies: no known allergies; - Home Meds: 1. ondansetron HCl 4 mg Oral tab as needed 2. Oral daily - PMHx: PCOS; - PSHx: none; - Social history: Smoking status: Patient states was never smoker of tobacco. No barriers to communication noted, The patient speaks fluent Azerbaijani, Speaks appropriately for age. - Family history: Not pertinent. - : The pt / caregiver states he / she is not on anticoagulants. Home medication list is obtained from the patient. - Exposure Risk Screening:: None identified. Screenin:19 Screening information is obtained from the patient. Fall risk: No risks identified. dls Assistance ADL's: requires no assistance with activities of daily living. Abuse/DV Screen: The patient / caregiver reports he/she is: not in a situation that causes fear, pain or injury. Nutritional screening: No deficits noted. Advance Directives: Currently, there is no health care proxy. There is no active DNR order. There is no living will. There is no Power of Collar Starcher. Advance directive information has not previously been placed in an [facility] medical record. home support is adequate. Assessment: 10:18 General: Appears in no apparent distress, well developed, well nourished, well groomed, dls Behavior is cooperative. Pain: Denies pain. Neurological: No deficits noted. EENT: No deficits noted. Cardiovascular: No deficits noted. Respiratory: No deficits noted. : Reports urgency urinary frequency Denies vaginal bleeding. Derm: No deficits noted. Musculoskeletal: No deficits noted. Injury Description: No known injury. 11:30 General: Appears in no apparent distress, Behavior is appropriate for age, reports of rs3 feeling better. IVF NS bolus infusing. influenza swab sent. 12:30 General: Appears in no apparent distress, Behavior is cooperative. General: feeling rs3 better. GI: Abdomen is non- distended Bowel sounds present X 4 quads. Abd is soft and non tender X 4 quads. 13:34 Reassessment: Patient appears in no apparent distress at this time. Patient denies pain rs3 at this time. Patient states feeling better. Patient states symptoms have improved. Vital Signs: 08:57 BP 110 / 63; Pulse 107; Resp 16; Temp 98.6(O); Pulse Ox 100% ; Weight 73.03 kg; Height cmb 5 ft. 2 in. (157.48 cm); Pain 5/10; 13:53 BP 108 / 64; Pulse 96; Resp 18; Temp 97.4; Pulse Ox 98% ; Pain 0/10; dls 08:57 Body Mass Index 29.45 (73.03 kg, 157.48 cm) b Vitals: 08:57 Log In Time: January 12, 2017 at 08:45. [facility] ED Course: 08:56 Patient visited by Leena Easton. [facility] 08:56 Patient moved to Waiting [facility] 08:57 Carlitos [facility] is Private Physician. cmb 08:58 Patient moved to Pre RCE cmb 09:05 Triage Initiated kc3 09:30 Patient moved to Triage 2 mlb1 09:46 Nikita De Santiago PA-C is PHCP. dk1 09:46 Eric Corcoran MD is Attending Physician. dk1 09:46 Patient visited by Nikita De Santiago PA-C. dk1 09:55 Patient moved to I5 / M5 kc3 09:59 Urine Culture Sent. kc3 09:59 UA Sent. kc3 10:16 BMP Sent. dls 10:16 CBC with Diff Sent. dls 10:17 Inserted saline lock: 20 gauge in left antecubital area and blood collected. The dls patient tolerated the procedure well. No procedures done that require assistance. Labs drawn. (by ED staff). 10:19 The patient / caregiver is instructed regarding the plan of care and ED course. Patient dls has correct armband on for positive identification. Placed in gown. Bed in low position. Call light in reach. 10:22 [facility] Payment Agreement was scanned into [employer] and attached to record. lg 10:37 Patient moved to Ultrasound am10 10:51 Patient moved to I5 / M5 am10 10:56 Patient visited by Checo Soriano. dem1 11:11 US 1st trimester Returned. EDMS 11:30 Patient visited by Checo Soriano. dem1 12:05 Patient visited by Checo Soriano. dem1 12:42 -Influenza A&B Rapid Antigen - Nose Sent. dls 12:45 Patient visited by Renata Dahl RN. rs3 13:33 Patient visited by Renata Dahl RN. rs3 13:47 Kimmy Mcgregor OB is Referral Physician. dk1 13:55 Discontinued IV lock intact, bleeding controlled, pressure dressing applied, No dls redness/swelling at site. Administered Medications: 10:16 Drug: NS 0.9% 1000 ml [sodium chloride 0.9 % intravenous solution] Route: IV; Rate: dls bolus; Site: left antecubital; 13:54 Follow up: IV Status: Completed infusion dls Order Results: Lab Order: CBC with Diff; SPEC'M 01/12/17 09:56 Test: WHITE BLOOD COUNT; Value: 5.3; Range: 4.0-10.0; Units: K/mm3; Status: F Test: RED BLOOD COUNT; Value: 3.89; Range: 4.00-5.40; Abnormal: Below low normal; Units: M/mm3; Status: F Test: HEMOGLOBIN; Value: 11.9; Range: 12.0-16.0; Abnormal: Below low normal; Units: g/dl; Status: F Test: HEMATOCRIT; Value: 35.3; Range: 36.0-47.0; Abnormal: Below low normal; Units: %; Status: F Test: MEAN CORPUSCULAR VOLUME; Value: 90.7; Range: 80.0-96.0; Units: fl; Status: F Test: MEAN CORPUSCULAR HEMOGLOBIN; Value: 30.6; Range: 27.0-33.0; Units: pg; Status: F Test: MEAN CORPUSCULAR HGB CONC; Value: 33.8; Range: 32.0-36.5; Units: g/dl; Status: F Test: RED CELL DISTRIBUTION WIDTH; Value: 12.4; Range: 11.5-14.5; Units: %; Status: F Test: PLATELET COUNT, AUTOMATED; Value: 321; Range: 150-450; Units: k/mm3; Status: F Test: NEUTROPHILS %; Value: 66.6; Range: 36.0-66.0; Abnormal: Above high normal; Units: %; Status: F Test: LYMPH %; Value: 23.1; Range: 24.0-44.0; Abnormal: Below low normal; Units: %; Status: F Test: MONO %; Value: 5.8; Range: 0.0-5.0; Abnormal: Above high normal; Units: %; Status: F Test: EOS %; Value: 2.5; Range: 0.0-3.0; Units: %; Status: F Test: BASO %; Value: 0.4; Range: 0.0-1.0; Units: %; Status: F Test: LARGE UNSTAINED CELL %; Value: 1.6; Range: 0.0-4.0; Units: %; Status: F Test: NEUTROPHILS #; Value: 3.6; Range: 1.8-7.7; Units: K/mm3; Status: F Test: LYMPH #; Value: 1.3; Range: 1.5-6.5; Abnormal: Below low normal; Units: K/mm3; Status: F Test: MONO #; Value: 0.3; Range: 0.0-0.8; Units: K/mm3; Status: F Test: EOS #; Value: 0.1; Range: 0.0-0.50; Units: K/mm3; Status: F Test: BASO #; Value: 0.0; Range: 0.0-0.2; Units: K/mm3; Status: F Test: LARGE UNSTAINED CELL #; Value: 0.1; Range: 0.0-0.4; Units: K/mm3; Status: F Lab Order: [facility]; SPEC'M 01/12/17 09:56 Test: GLUCOSE, FASTING; Value: 80; Range: 70-105; Units: MG/DL; Status: F Test: BLOOD UREA NITROGEN; Value: 11; Range: 7-18; Units: MG/DL; Status: F Test: CREATININE FOR GFR; Value: 0.64; Range: 0.55-1.02; Units: MG/DL; Status: F Test: GLOMERULAR FILTRATION RATE; Value: > 60.0; Range: >60; Status: F Test: SODIUM LEVEL; Value: 138; Range: 136-145; Units: MEQ/L; Status: F Test: POTASSIUM SERUM; Value: 3.8; Range: 3.5-5.1; Units: MEQ/L; Status: F Test: CHLORIDE LEVEL; Value: 102; Range: 98-107; Units: MEQ/L; Status: F Test: CARBON DIOXIDE LEVEL; Value: 27; Range: 21-32; Units: MEQ/L; Status: F Test: ANION GAP; Value: 9; Range: 8-16; Units: MEQ/L; Status: F Test: CALCIUM LEVEL; Value: 9.3; Range: 8.5-10.1; Units: MG/DL; Status: F Test Note: ; Units are mL/min/1.73 m2 Chronic Kidney Disease Staging per NKF: Stage I & II GFR >=60 Normal to Mildly Decreased Stage III GFR 30-59 Moderately Decreased Stage IV GFR 15-29 Severely Decreased Stage V GFR <15 Very Little GFR Left ESRD GFR <15 on MANAGER ANALYTICAL Lab Order: UA; SPEC'M 01/12/17 09:56 Test: APPEARANCE, URINE; Value: HAZY; Range: CLEAR; Status: F Test: COLOR, URINE; Value: YELLOW; Range: YELLOW; Status: F Test: PH,URINE; Value: 7.0; Range: 5.0-9.0; Units: UNITS; Status: F Test: SPECIFIC GRAVITY URINE AUTO; Value: 1.021; Range: 1.002-1.035; Status: F Test: PROTEIN, URINE AUTO; Value: 1+; Range: NEGATIVE; Abnormal: Above high normal; Units: mg/dL; Status: F Test: GLUCOSE, URINE (UA) AUTO; Value: NEGATIVE; Range: NEGATIVE; Units: mg/dL; Status: F Test: KETONE, URINE AUTO; Value: NEGATIVE; Range: NEGATIVE; Units: mg/dL; Status: F Test: UROBILINOGEN, URINE AUTO; Value: 0.2; Range: 0.0-2.0; Units: mg/dL; Status: F Test: BILIRUBIN, URINE AUTO; Value: NEGATIVE; Range: NEGATIVE; Status: F Test: NITRITE, URINE AUTO; Value: NEGATIVE; Range: NEGATIVE; Status: F Test: LEUKOCYTE ESTERASE, URINE AUTO; Value: NEGATIVE; Range: NEGATIVE; Status: F Test: BLOOD, URINE BLOOD; Value: NEGATIVE; Range: NEGATIVE; Status: F Test: WBC, URINE AUTO; Value: 2; Range: 0-3; Units: /HPF; Status: F Test: RBC, URINE AUTO; Value: 2; Range: 0-3; Units: /HPF; Status: F Test: BACTERIA, URINE AUTO; Value: NEGATIVE; Range: NEGATIVE; Status: F Test: SQUAMOUS EPITHELIAL CELL UR AU; Value: 2; Range: 0-6; Units: /HPF; Status: F Test: MUCUS, URINE; Value: LARGE; Range: NEGATIVE; Status: F Test: HYALINE CAST, URINE AUTO; Value: 0; Range: 0-1; Units: /LPF; Status: F Test: URIC ACID CRYSTALS; Value: SMALL; Range: NONE; Status: F Lab Order: -Influenza A&B Rapid Antigen - Nose; SPEC'M 01/12/17 11:57 Test: INFLUENZA A RAPID SCR by ICA; Value: INFLUENZA A RESULTS NEGATIVE; Status: F Test: INFLUENZA A RAPID SCR by ICA; Value: Comments:; Status: F Test: INFLUENZA B RAPID SCR by ICA; Value: INFLUENZA B RESULTS NEGATIVE; Status: F Test Note: ; The Influenza test is a direct rapid immunoassay for the qualitative detection of Influenza viral antigen. Cell culture (Viral Culture) testing should be considered to confirm NEGATIVE results and to assist in detecting other viruses that can provide similar clinical symptoms. Please contact the lab within 24 hours ([phone] if confirmatory testing is desired. Radiology Order: US 1st trimester Test: US 1st trimester REASON FOR EXAMINATION: lOWER ABD CRAMPING; Clinical: Early with abdominal pain and cramping.; ; Technique: Transabdominal first trimester obstetrical ultrasound with color; Doppler evaluation.; ; Findings:; Ultrasound examination demonstrates a single live intrauterine in; transverse presentation. motion is appreciated. heart rate equals; 153 beats per minute. No gross abnormalities are identified. Biometrical; measurements correspond to 13 weeks 2 days gestational age with estimated date of; delivery 07/18/2017.; ; Placenta identified anteriorly and grade zero. Amniotic fluid volume is normal.; Cervix measures 3.3 cm in length and appears closed.; ; Impression:; Live intrauterine at 13 weeks 2 days gestational age. No gross; abnormalities are identified.; ; ; Signed by; Mando Branch MD 01/12/2017 10:58 A; Outcome: 13:47 Discharge ordered by Provider. dk1 13:55 Discharge Assessment: Patient awake, alert and oriented x 3. No cognitive and/or dls functional deficits noted. Patient verbalized understanding of disposition instructions. patient administered narcotics - no. The following High Risk Discharge criteria are identified: None. Discharged to home ambulatory. Condition: stable. Discharge instructions given to patient, Instructed on discharge instructions, follow up and referral plans. Demonstrated understanding of instructions, medications, Pt was receptive of discharge instructions/ teaching. Ultrasound Study completed. Property sent home with patient. 13:56 Patient left the ED. dls Signatures: Dispatcher [employer] EDOfelia Pacheco RN RN Phil Wagoner, Cesario Waters lg RN RN mlb1 Nikita De Santiago, PA-C PA-C [email or web address] Evelyn Reyna Rosemary, RN RN rs3 Checo Soriano1 Leena Easton cmb Deepti Roper,RN RN kc3 MTDD
--- NOTE | 2017-01-12 13:57 | EDDOCDS ---
Physician Documentation [facility] Name: Clarence Oconnell Age: 31 yrs Sex: Female : 1985 Arrival Date: 01/12/2017 Time: 08:55 Bed I5 / M5 Private MD: Carlitos [facility] [place] Disposition: 01/12/17 13:47 Discharged to Home/Self Care. Impression: Nausea and vomiting. - Condition is Stable. - Discharge Instructions: Nausea and Vomiting. - Medication Reconciliation, Local Pharmacy Hours form. - Follow up: Kimmy Mcgregor OB; When: 1 - 2 days; Reason: Recheck today's complaints, Continuance of care. - Problem is new. - Symptoms have improved. Historical: - Allergies: no known allergies; - Home Meds: 1. ondansetron HCl 4 mg Oral tab as needed 2. Oral daily - PMHx: PCOS; - PSHx: none; - Social history: Smoking status: Patient states was never smoker of tobacco. No barriers to communication noted, The patient speaks fluent Greek, Speaks appropriately for age. - Family history: Not pertinent. - : The pt / caregiver states he / she is not on anticoagulants. Home medication list is obtained from the patient. - Exposure Risk Screening:: None identified. STAFFING MGR: 01/12 09:07 LMP 10/10/2016, Verified, EDC 07/17/2017, Gestational age from LMP: 13 weeks 3 kc3 days Vital Signs: 08:57 BP 110 / 63; Pulse 107; Resp 16; Temp 98.6(O); Pulse Ox 100% ; Weight 73.03 kg / 161 cmb lbs; Height 5 ft. 2 in. (157.48 cm); Pain 5/10; 13:53 BP 108 / 64; Pulse 96; Resp 18; Temp 97.4; Pulse Ox 98% ; Pain 0/10; dls 08:57 Body Mass Index 29.45 (73.03 kg, 157.48 cm) cmb MDM: 09:51 IV Saline Lock ordered. dk1 09:51 NS 0.9% 1000 ml IV at bolus once ordered. dk1 09:52 CBC with Diff Ordered. EDMS 09:52 BMP Ordered. EDMS 09:52 UA Ordered. EDMS 09:52 Urine Culture Ordered. EDMS 09:53 US 1st trimester Ordered. EDMS 10:11 Financial registration complete. lg 10:22 [facility] Payment Agreement was scanned into [employer] and attached to record. lg 10:51 CBC with Diff Reviewed. dk1 10:51 UA Reviewed. dk1 10:51 BMP Reviewed. dk1 10:53 DUPLEX SCAN LIMITED (DOPPLER) Ordered. EDMS 11:25 Fluid Challenge ordered. dk1 11:49 Obtain sample by nasopharyngeal swab ordered. dk1 12:01 US 1st trimester Reviewed. dk1 12:42 -Influenza A&B Rapid Antigen - Nose Ordered. EDMS 13:07 -Influenza A&B Rapid Antigen - Nose Reviewed. dk1 Administered Medications: 10:16 Drug: NS 0.9% 1000 ml [sodium chloride 0.9 % intravenous solution] Route: IV; Rate: dls bolus; Site: left antecubital; 13:54 Follow up: IV Status: Completed infusion dls Signatures: Dispatcher [employer] EDMS Ofelia Campbell RN RN dls Phil Caraballo, Dylan Richardson lg Nikita De Santiago, PA-C PA-C dk1 Deepti Roper,RN RN kc3 The chart was reviewed and I authenticate all verbal orders and agree with the evaluation and treatment provided.Attachments: 10:22 [facility] Payment Agreement lg MTDD
--- NOTE | 2017-01-14 14:56 | EDDOCDS ---
Physician Documentation [facility] Name: Clarence Oconnell Age: 31 yrs Sex: Female : 1985 Arrival Date: 01/12/2017 Time: 08:55 Bed I5 / M5 Private MD: Carlitos [facility] [place] Disposition: 01/12/17 13:47 Discharged to Home/Self Care. Impression: Nausea and vomiting. - Condition is Stable. - Discharge Instructions: Nausea and Vomiting. - Medication Reconciliation, Local Pharmacy Hours form. - Follow up: Kimmy Mcgregor OB; When: 1 - 2 days; Reason: Recheck today's complaints, Continuance of care. - Problem is new. - Symptoms have improved. Historical: - Allergies: no known allergies; - Home Meds: 1. ondansetron HCl 4 mg Oral tab as needed 2. Oral daily - PMHx: PCOS; - PSHx: none; - Social history: Smoking status: Patient states was never smoker of tobacco. No barriers to communication noted, The patient speaks fluent Guinean, Speaks appropriately for age. - Family history: Not pertinent. - : The pt / caregiver states he / she is not on anticoagulants. Home medication list is obtained from the patient. - Exposure Risk Screening:: None identified. CITY COLLECTOR: 01/12 09:07 LMP 10/10/2016, Verified, EDC 07/17/2017, Gestational age from LMP: 13 weeks 3 kc3 days Vital Signs: 08:57 BP 110 / 63; Pulse 107; Resp 16; Temp 98.6(O); Pulse Ox 100% ; Weight 73.03 kg / 161 cmb lbs; Height 5 ft. 2 in. (157.48 cm); Pain 5/10; 13:53 BP 108 / 64; Pulse 96; Resp 18; Temp 97.4; Pulse Ox 98% ; Pain 0/10; dls 08:57 Body Mass Index 29.45 (73.03 kg, 157.48 cm) cmb MDM: 09:51 IV Saline Lock ordered. dk1 09:51 NS 0.9% 1000 ml IV at bolus once ordered. dk1 09:52 CBC with Diff Ordered. EDMS 09:52 BMP Ordered. EDMS 09:52 UA Ordered. EDMS 09:52 Urine Culture Ordered. EDMS 09:53 US 1st trimester Ordered. EDMS 10:11 Financial registration complete. lg 10:22 [facility] Payment Agreement was scanned into [employer] and attached to record. lg 10:51 CBC with Diff Reviewed. dk1 10:51 UA Reviewed. dk1 10:51 BMP Reviewed. dk1 10:53 DUPLEX SCAN LIMITED (DOPPLER) Ordered. EDMS 11:25 Fluid Challenge ordered. dk1 11:49 Obtain sample by nasopharyngeal swab ordered. dk1 12:01 US 1st trimester Reviewed. dk1 12:42 -Influenza A&B Rapid Antigen - Nose Ordered. EDMS 13:07 -Influenza A&B Rapid Antigen - Nose Reviewed. dk1 17:10 T-Sheet-- Draft Copy was scanned into [employer] and attached to record. klr Administered Medications: 10:16 Drug: NS 0.9% 1000 ml [sodium chloride 0.9 % intravenous solution] Route: IV; Rate: dls bolus; Site: left antecubital; 13:54 Follow up: IV Status: Completed infusion dls Signatures: Dispatcher [employer] EDMS Ofelia Campbell RN RN dls Phil Caraballo, Dylan Richardson lg Nikita De Santiago, PA-C PA-C dk1 Deepti Roper RN RN Meghana Gardner The chart was reviewed and I authenticate all verbal orders and agree with the evaluation and treatment provided.Attachments: 10:22 [facility] Payment Agreement lg 17:10 T-Sheet-- Draft Copy klr Chart Complete MTDD
--- NOTE | 2017-01-14 14:56 | EDDOCDS ---
Nurse's Notes [facility] Name: Clarence Oconnell Age: 31 yrs Sex: Female : 1985 Arrival Date: 01/12/2017 Time: 08:55 Bed I5 / M5 Private MD: FABIO Urbina Diagnosis: Nausea and vomiting Presentation: 01/12 09:02 Presenting complaint: Patient states: n/v x 3 days with lower abdominal pain reported. kc3 Pt reports finished Macrobid this past for UTI but reports "feels like I still have a UTI." Pt reports is 12 weeks . Risk factors: the patient reports no vaginal bleeding. Adult Sepsis Screening: The patient does not have new or worsening altered mentation. Patient's respiratory rate is less than 22. Systolic blood pressure is greater than 100. Patient has a qSOFA score of 0- Negative Sepsis Screen. Suicide/Homicide risk assessment- the patient denies having any suicidal and/or homicidal ideations and does not present with any other emotional, behavioral or mental health complaints. Status: Patient is not a residential service technician or dependent. Transition of care: patient was not received from another setting of care. 09:02 Acuity: MICHELLE Level 3 kc3 09:02 Method Of Arrival: Walkin/Carried/Asstd kc3 Triage Assessment: 09:06 General: Appears in no apparent distress, comfortable, Behavior is appropriate for age, kc3 cooperative. Pain: Location: abdomen Pain currently is 5 out of 10 on a pain scale. HIV screening NA for this visit Offered previously. GI: Abdomen is flat, Reports nausea, vomiting. 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 ondansetron HCl 4 mg Oral tab as needed 2. Oral daily - PMHx: PCOS; - PSHx: none; - Social history: Smoking status: Patient states was never smoker of tobacco. No barriers to communication noted, The patient speaks fluent Sudanese, Speaks appropriately for age. - Family history: Not pertinent. - : The pt / caregiver states he / she is not on anticoagulants. Home medication list is obtained from the patient. - Exposure Risk Screening:: None identified. Screenin:19 Screening information is obtained from the patient. Fall risk: No risks identified. dls Assistance ADL's: requires no assistance with activities of daily living. Abuse/DV Screen: The patient / caregiver reports he/she is: not in a situation that causes fear, pain or injury. Nutritional screening: No deficits noted. Advance Directives: Currently, there is no health care proxy. There is no active DNR order. There is no living will. There is no Power of Concrete Form Setter. Advance directive information has not previously been placed in an [facility] medical record. home support is adequate. Assessment: 10:18 General: Appears in no apparent distress, well developed, well nourished, well groomed, dls Behavior is cooperative. Pain: Denies pain. Neurological: No deficits noted. EENT: No deficits noted. Cardiovascular: No deficits noted. Respiratory: No deficits noted. : Reports urgency urinary frequency Denies vaginal bleeding. Derm: No deficits noted. Musculoskeletal: No deficits noted. Injury Description: No known injury. 11:30 General: Appears in no apparent distress, Behavior is appropriate for age, reports of rs3 feeling better. IVF NS bolus infusing. influenza swab sent. 12:30 General: Appears in no apparent distress, Behavior is cooperative. General: feeling rs3 better. GI: Abdomen is non- distended Bowel sounds present X 4 quads. Abd is soft and non tender X 4 quads. 13:34 Reassessment: Patient appears in no apparent distress at this time. Patient denies pain rs3 at this time. Patient states feeling better. Patient states symptoms have improved. Vital Signs: 08:57 BP 110 / 63; Pulse 107; Resp 16; Temp 98.6(O); Pulse Ox 100% ; Weight 73.03 kg; Height cmb 5 ft. 2 in. (157.48 cm); Pain 5/10; 13:53 BP 108 / 64; Pulse 96; Resp 18; Temp 97.4; Pulse Ox 98% ; Pain 0/10; dls 08:57 Body Mass Index 29.45 (73.03 kg, 157.48 cm) b Vitals: 08:57 Log In Time: January 12, 2017 at 08:45. [facility] ED Course: 08:56 Patient visited by Leena Easton. [facility] 08:56 Patient moved to Waiting [facility] 08:57 [place] [facility] [place] Physician. cmb 08:58 Patient moved to Pre RCE cmb 09:05 Triage Initiated kc3 09:30 Patient moved to Triage 2 mlb1 09:46 Nikita De Santiago PA-C is PHCP. dk1 09:46 Eric Corcoran MD is Attending Physician. dk1 09:46 Patient visited by Nikita De Santiago PA-C. dk1 09:55 Patient moved to I5 / M5 kc3 09:59 Urine Culture Sent. kc3 09:59 UA Sent. kc3 10:16 BMP Sent. dls 10:16 CBC with Diff Sent. dls 10:17 Inserted saline lock: 20 gauge in left antecubital area and blood collected. The dls patient tolerated the procedure well. No procedures done that require assistance. Labs drawn. (by ED staff). 10:19 The patient / caregiver is instructed regarding the plan of care and ED course. Patient dls has correct armband on for positive identification. Placed in gown. Bed in low position. Call light in reach. 10:22 [facility] Payment Agreement was scanned into [employer] and attached to record. lg 10:37 Patient moved to Ultrasound am10 10:51 Patient moved to I5 / M5 am10 10:56 Patient visited by Checo Soriano. dem1 11:11 US 1st trimester Returned. EDMS 11:30 Patient visited by Checo Soriano. dem1 12:05 Patient visited by Checo Soriano. dem1 12:42 -Influenza A&B Rapid Antigen - Nose Sent. dls 12:45 Patient visited by Renata Dahl RN. rs3 13:33 Patient visited by Renata Dahl RN. rs3 13:47 Kimmy Mcgregor OB is Referral Physician. dk1 13:55 Discontinued IV lock intact, bleeding controlled, pressure dressing applied, No dls redness/swelling at site. 17:10 T-Sheet-- Draft Copy was scanned into [employer] and attached to record. klr Administered Medications: 10:16 Drug: NS 0.9% 1000 ml [sodium chloride 0.9 % intravenous solution] Route: IV; Rate: dls bolus; Site: left antecubital; 13:54 Follow up: IV Status: Completed infusion dls Order Results: Lab Order: CBC with Diff; SPEC'M 01/12/17 09:56 Test: WHITE BLOOD COUNT; Value: 5.3; Range: 4.0-10.0; Units: K/mm3; Status: F Test: RED BLOOD COUNT; Value: 3.89; Range: 4.00-5.40; Abnormal: Below low normal; Units: M/mm3; Status: F Test: HEMOGLOBIN; Value: 11.9; Range: 12.0-16.0; Abnormal: Below low normal; Units: g/dl; Status: F Test: HEMATOCRIT; Value: 35.3; Range: 36.0-47.0; Abnormal: Below low normal; Units: %; Status: F Test: MEAN CORPUSCULAR VOLUME; Value: 90.7; Range: 80.0-96.0; Units: fl; Status: F Test: MEAN CORPUSCULAR HEMOGLOBIN; Value: 30.6; Range: 27.0-33.0; Units: pg; Status: F Test: MEAN CORPUSCULAR HGB CONC; Value: 33.8; Range: 32.0-36.5; Units: g/dl; Status: F Test: RED CELL DISTRIBUTION WIDTH; Value: 12.4; Range: 11.5-14.5; Units: %; Status: F Test: PLATELET COUNT, AUTOMATED; Value: 321; Range: 150-450; Units: k/mm3; Status: F Test: NEUTROPHILS %; Value: 66.6; Range: 36.0-66.0; Abnormal: Above high normal; Units: %; Status: F Test: LYMPH %; Value: 23.1; Range: 24.0-44.0; Abnormal: Below low normal; Units: %; Status: F Test: MONO %; Value: 5.8; Range: 0.0-5.0; Abnormal: Above high normal; Units: %; Status: F Test: EOS %; Value: 2.5; Range: 0.0-3.0; Units: %; Status: F Test: BASO %; Value: 0.4; Range: 0.0-1.0; Units: %; Status: F Test: LARGE UNSTAINED CELL %; Value: 1.6; Range: 0.0-4.0; Units: %; Status: F Test: NEUTROPHILS #; Value: 3.6; Range: 1.8-7.7; Units: K/mm3; Status: F Test: LYMPH #; Value: 1.3; Range: 1.5-6.5; Abnormal: Below low normal; Units: K/mm3; Status: F Test: MONO #; Value: 0.3; Range: 0.0-0.8; Units: K/mm3; Status: F Test: EOS #; Value: 0.1; Range: 0.0-0.50; Units: K/mm3; Status: F Test: BASO #; Value: 0.0; Range: 0.0-0.2; Units: K/mm3; Status: F Test: LARGE UNSTAINED CELL #; Value: 0.1; Range: 0.0-0.4; Units: K/mm3; Status: F Lab Order: [facility]; SPEC'M 01/12/17 09:56 Test: GLUCOSE, FASTING; Value: 80; Range: 70-105; Units: MG/DL; Status: F Test: BLOOD UREA NITROGEN; Value: 11; Range: 7-18; Units: MG/DL; Status: F Test: CREATININE FOR GFR; Value: 0.64; Range: 0.55-1.02; Units: MG/DL; Status: F Test: GLOMERULAR FILTRATION RATE; Value: > 60.0; Range: >60; Status: F Test: SODIUM LEVEL; Value: 138; Range: 136-145; Units: MEQ/L; Status: F Test: POTASSIUM SERUM; Value: 3.8; Range: 3.5-5.1; Units: MEQ/L; Status: F Test: CHLORIDE LEVEL; Value: 102; Range: 98-107; Units: MEQ/L; Status: F Test: CARBON DIOXIDE LEVEL; Value: 27; Range: 21-32; Units: MEQ/L; Status: F Test: ANION GAP; Value: 9; Range: 8-16; Units: MEQ/L; Status: F Test: CALCIUM LEVEL; Value: 9.3; Range: 8.5-10.1; Units: MG/DL; Status: F Test Note: ; Units are mL/min/1.73 m2 Chronic Kidney Disease Staging per NKF: Stage I & II GFR >=60 Normal to Mildly Decreased Stage III GFR 30-59 Moderately Decreased Stage IV GFR 15-29 Severely Decreased Stage V GFR <15 Very Little GFR Left ESRD GFR <15 on NUCLEAR EQUIPMENT OPERATOR Lab Order: UA; SPEC'M 01/12/17 09:56 Test: APPEARANCE, URINE; Value: HAZY; Range: CLEAR; Status: F Test: COLOR, URINE; Value: YELLOW; Range: YELLOW; Status: F Test: PH,URINE; Value: 7.0; Range: 5.0-9.0; Units: UNITS; Status: F Test: SPECIFIC GRAVITY URINE AUTO; Value: 1.021; Range: 1.002-1.035; Status: F Test: PROTEIN, URINE AUTO; Value: 1+; Range: NEGATIVE; Abnormal: Above high normal; Units: mg/dL; Status: F Test: GLUCOSE, URINE (UA) AUTO; Value: NEGATIVE; Range: NEGATIVE; Units: mg/dL; Status: F Test: KETONE, URINE AUTO; Value: NEGATIVE; Range: NEGATIVE; Units: mg/dL; Status: F Test: UROBILINOGEN, URINE AUTO; Value: 0.2; Range: 0.0-2.0; Units: mg/dL; Status: F Test: BILIRUBIN, URINE AUTO; Value: NEGATIVE; Range: NEGATIVE; Status: F Test: NITRITE, URINE AUTO; Value: NEGATIVE; Range: NEGATIVE; Status: F Test: LEUKOCYTE ESTERASE, URINE AUTO; Value: NEGATIVE; Range: NEGATIVE; Status: F Test: BLOOD, URINE BLOOD; Value: NEGATIVE; Range: NEGATIVE; Status: F Test: WBC, URINE AUTO; Value: 2; Range: 0-3; Units: /HPF; Status: F Test: RBC, URINE AUTO; Value: 2; Range: 0-3; Units: /HPF; Status: F Test: BACTERIA, URINE AUTO; Value: NEGATIVE; Range: NEGATIVE; Status: F Test: SQUAMOUS EPITHELIAL CELL UR AU; Value: 2; Range: 0-6; Units: /HPF; Status: F Test: MUCUS, URINE; Value: LARGE; Range: NEGATIVE; Status: F Test: HYALINE CAST, URINE AUTO; Value: 0; Range: 0-1; Units: /LPF; Status: F Test: URIC ACID CRYSTALS; Value: SMALL; Range: NONE; Status: F Lab Order: Urine Culture; SPEC'M 01/12/17 09:57 Test: URINE CULTURE; Value: <EXTERNAL COMMENT eCWMed> FULL REPORT IN LAB NOTES (eCW and Medent).; Status: F Test: URINE CULTURE; Value: URINE CULTURE RESULT; Status: F Test: URINE CULTURE; Value: NO GROWTH CLINICAL SIGNIFICANCE 2 OR MORE ORGANISMS; Status: F Lab Order: -Influenza A&B Rapid Antigen - Nose; SPEC'M 01/12/17 11:57 Test: INFLUENZA A RAPID SCR by ICA; Value: INFLUENZA A RESULTS NEGATIVE; Status: F Test: INFLUENZA A RAPID SCR by ICA; Value: Comments:; Status: F Test: INFLUENZA B RAPID SCR by ICA; Value: INFLUENZA B RESULTS NEGATIVE; Status: F Test Note: ; The Influenza test is a direct rapid immunoassay for the qualitative detection of Influenza viral antigen. Cell culture (Viral Culture) testing should be considered to confirm NEGATIVE results and to assist in detecting other viruses that can provide similar clinical symptoms. Please contact the lab within 24 hours ([phone] if confirmatory testing is desired. Radiology Order: US 1st trimester Test: US 1st trimester REASON FOR EXAMINATION: lOWER ABD CRAMPING; Clinical: Early with abdominal pain and cramping.; ; Technique: Transabdominal first trimester obstetrical ultrasound with color; Doppler evaluation.; ; Findings:; Ultrasound examination demonstrates a single live intrauterine in; transverse presentation. motion is appreciated. heart rate equals; 153 beats per minute. No gross abnormalities are identified. Biometrical; measurements correspond to 13 weeks 2 days gestational age with estimated date of; delivery 07/18/2017.; ; Placenta identified anteriorly and grade zero. Amniotic fluid volume is normal.; Cervix measures 3.3 cm in length and appears closed.; ; Impression:; Live intrauterine at 13 weeks 2 days gestational age. No gross; abnormalities are identified.; ; ; Signed by; Mando Branch MD 01/12/2017 10:58 A; Outcome: 13:47 Discharge ordered by Provider. dk1 13:55 Discharge Assessment: Patient awake, alert and oriented x 3. No cognitive and/or dls functional deficits noted. Patient verbalized understanding of disposition instructions. patient administered narcotics - no. The following High Risk Discharge criteria are identified: None. Discharged to home ambulatory. Condition: stable. Discharge instructions given to patient, Instructed on discharge instructions, follow up and referral plans. Demonstrated understanding of instructions, medications, Pt was receptive of discharge instructions/ teaching. Ultrasound Study completed. Property sent home with patient. 13:56 Patient left the ED. dls Signatures: Dispatcher [employer] EDMS Ofelia Campbell, RN RN dls Phil Caraballo Reg Reg lg Barney, Michael B, RN RN mlb1 Nikita De Santiago, PA-C PA-C dk1 Evelyn Reyna am10 Renata Dahl RN RN rs3 Checo Soriano [place] cmb Crane, Kelsi, RN RN kc3 Meghana Thompson Chart Complete MTDD
--- NOTE | 2017-01-14 14:56 | EDDOCDS ---
Physician Documentation [facility] Name: Clarence Oconnell Age: 31 yrs Sex: Female : 1985 Arrival Date: 01/12/2017 Time: 08:55 Bed I5 / M5 Private MD: Carlitos [facility] Disposition: 01/12/17 13:47 Discharged to Home/Self Care. Impression: Nausea and vomiting. - Condition is Stable. - Discharge Instructions: Nausea and Vomiting. - Medication Reconciliation, Local Pharmacy Hours form. - Follow up: Kimmy Mcgregor OB; When: 1 - 2 days; Reason: Recheck today's complaints, Continuance of care. - Problem is new. - Symptoms have improved. Historical: - Allergies: no known allergies; - Home Meds: 1. ondansetron HCl 4 mg Oral tab as needed 2. Oral daily - PMHx: PCOS; - PSHx: none; - Social history: Smoking status: Patient states was never smoker of tobacco. No barriers to communication noted, The patient speaks fluent Indian, Speaks appropriately for age. - Family history: Not pertinent. - : The pt / caregiver states he / she is not on anticoagulants. Home medication list is obtained from the patient. - Exposure Risk Screening:: None identified. GENERAL HELPER: 01/12 09:07 LMP 10/10/2016, Verified, EDC 07/17/2017, Gestational age from LMP: 13 weeks 3 kc3 days Vital Signs: 08:57 BP 110 / 63; Pulse 107; Resp 16; Temp 98.6(O); Pulse Ox 100% ; Weight 73.03 kg / 161 cmb lbs; Height 5 ft. 2 in. (157.48 cm); Pain 5/10; 13:53 BP 108 / 64; Pulse 96; Resp 18; Temp 97.4; Pulse Ox 98% ; Pain 0/10; dls 08:57 Body Mass Index 29.45 (73.03 kg, 157.48 cm) cmb MDM: 09:51 IV Saline Lock ordered. dk1 09:51 NS 0.9% 1000 ml IV at bolus once ordered. dk1 09:52 CBC with Diff Ordered. EDMS 09:52 BMP Ordered. EDMS 09:52 UA Ordered. EDMS 09:52 Urine Culture Ordered. EDMS 09:53 US 1st trimester Ordered. EDMS 10:11 Financial registration complete. lg 10:22 [facility] Payment Agreement was scanned into [employer] and attached to record. lg 10:51 CBC with Diff Reviewed. dk1 10:51 UA Reviewed. dk1 10:51 BMP Reviewed. dk1 10:53 DUPLEX SCAN LIMITED (DOPPLER) Ordered. EDMS 11:25 Fluid Challenge ordered. dk1 11:49 Obtain sample by nasopharyngeal swab ordered. dk1 12:01 US 1st trimester Reviewed. dk1 12:42 -Influenza A&B Rapid Antigen - Nose Ordered. EDMS 13:07 -Influenza A&B Rapid Antigen - Nose Reviewed. dk1 17:10 T-Sheet-- Draft Copy was scanned into [employer] and attached to record. klr Administered Medications: 10:16 Drug: NS 0.9% 1000 ml [sodium chloride 0.9 % intravenous solution] Route: IV; Rate: dls bolus; Site: left antecubital; 13:54 Follow up: IV Status: Completed infusion dls Signatures: Dispatcher [employer] EDMS Ofelia Campbell RN RN dls Phil Caraballo, Dylan Richardson lg Nikita De Santiago, PA-C PA-C dk1 Deepti Roper RN RN Meghana Gardner The chart was reviewed and I authenticate all verbal orders and agree with the evaluation and treatment provided.Attachments: 10:22 [facility] Payment Agreement lg 17:10 T-Sheet-- Draft Copy klr Chart Complete MTDD
== END 2017-01-12 13:56 | disposition home or self-care (01) ==
LOC: M ED 08:55
DX: O21.9 Vomiting of pregnancy, unspecified (principal); Z3A.13 13 weeks gestation of pregnancy; Z79.899 Other long term (current) drug therapy

== ENCOUNTER → 2017-06-24 | Outpatient (REF) | payer OTHER | LOC: M SFHCLERA 12:34 | PROVIDERS: ATTEND Nurse Practitioner Family | DX: N76.0 Acute vaginitis (principal) ==